=== PATIENT | female | born 1990 | race Caucasian/White ===

== ENCOUNTER 2016-04-03 12:41 | Emergency (ER) | payer BC, OTHER ==
[~2016-04-03] VITALS: Ht 165.1 cm; Wt 59.2 kg
[2016-04-03 12:55] VITALS: Ht 165.1 cm; Wt 59.2 kg
[2016-04-03] MEDS ORDERED: RABIES IMMUNE GLOBULIN (HUMAN) 150 INTER.UNIT/ML 2 ML VIAL IM. ONE (13:15)
[2016-04-03] MEDS ORDERED: RABIES VACCINE (IMOVAX) HUMAN DIPL CELL 2.5 INTER.UNIT/ML SYR IM. ONE (13:15)
[2016-04-03 15:58] VITALS: BP 101/58; PULSE 78; TEMP 36.7; O2SAT 97
--- NOTE | 2016-04-03 16:43 | EMERGENCY ROOM VISIT NOTE ---
History First contact with patient: 12:53 Chief Complaint: RABIES VACCINE Stated Complaint: NEEDS RABIES VACCINE History of Present Illness The patient is a 25 year old female who presents to the Emergency Room to undergo the rabies postexposure prophylaxis series. The family dog got into a fight yesterday morning with a raccoon. The raccoon has since been tested positive for rabies. The patient did have a direct exposure to the dog, and was sent here for further management. The patient is certain that the dog has not bitten any family members, and the patient has no current open wounds. Review of Systems 10 system review was performed and was negative except for pertinent positives and negatives as indicated in history of present illness Past Medical/Surgical History Medical Problems: (1) No Known Active Medical Problems Family History Patient reports no known family medical history. Social History Smoking Status: Never Smoker Marital Status: single Occupation Status: employed Current/Historical Medications No Active Prescriptions or Reported Meds Allergies Coded Allergies: No Known Allergies (Unverified , 04/03/16) Physical Exam Vital Signs Date Time Temp Pulse Resp B/P Pulse Ox O2 Delivery O2 Flow Rate FiO2 04/03/16 15:58 36.7 78 20 101/58 97 04/03/16 15:57 78 20 101/58 97 Room Air 04/03/16 12:55 36.7 78 20 102/61 97 Room Air Pain Rating (0-10): 0 Physical Exam CONSTITUTIONAL: Healthy and well nourished. Alert and oriented X 3 with positive affect. HEENT: Normocephalic, atraumatic. Pupils equal, round and reactive. NECK: Full active range of motion without discomfort. RESPIRATORY: Clear to auscultation bilaterally with no wheezing, crackles, rhonchi or stridor. CARDIOVASCULAR: Regular rate and rhythm with no murmurs, rubs or gallops. GASTROINTESTINAL: Bowel sounds present in all quadrants. MUSCULOSKELETAL: Full range of motion of all joints without discomfort. INTEGUMENTARY: No rash or other significant dermatologic conditions noted. NEUROLOGIC: No focal neurologic deficits noted. Medical Decision & Procedures Medications Administered Medications (Trade) Dose Ordered Sig/Jose Alfredo Route Start Time Stop Time Status Last Admin Dose Admin Rabies Vaccine Human Diploid Cell (Imovax Rabies) 2.5 interunit ONCE ONCE IM. 04/03/16 13:15 04/03/16 13:16 DC 04/03/16 13:41 2.5 INTERUNIT Rabies Immune Globulin (Imogam Rabies Inj) 1,184 interunit ONCE ONCE IM. 04/03/16 13:15 04/03/16 13:16 DC 04/03/16 14:40 1,184 INTERUNIT ED Course Patient history and physical exam were performed. Nurse's notes were reviewed. The patient was administered human rabies immunoglobulin 20 interunits per kilogram, along with Imovax without any adverse reaction. The patient will return on days 3, 7 and 14. The patient was happy with plan of care, and voiced understanding of all discharge instructions. Medical Decision Impression Primary Impression: Rabies, need for prophylactic vaccination against Departure Information Dispostion Home / Self-Care Condition GOOD Prescriptions No Active Prescriptions or Reported Meds Forms HOME CARE DOCUMENTATION FORM, IMPORTANT VISIT INFORMATION Patient Instructions [facility] Additional Instructions Return on the following days for subsequent injections: Day 3 (04/06) Day 7 (04/10) Day 14 (04/17)
== END 2016-04-03 15:59 | disposition home or self-care (01) ==
LOC: C.EDB 12:42 → C.EDD 15:59
DX: Z23 Encounter for immunization (principal); Z20.3 Contact with and (suspected) exposure to rabies; W55.59XA Other contact with raccoon, initial encounter; Y93.89 Activity, other specified; Y92.89 Other specified places as the place of occurrence of the external cause; Y99.8 Other external cause status

== ENCOUNTER 2016-04-05 15:03 | Emergency (ER) | payer BC ==
[~2016-04-05] VITALS: Ht 165.1 cm; Wt 60.8 kg
[2016-04-05 15:28] VITALS: BP 129/58; PULSE 68; TEMP 36.8; O2SAT 100; Ht 165.1 cm; Wt 60.8 kg
--- NOTE | 2016-04-05 16:21 | EMERGENCY ROOM VISIT NOTE ---
ED Visit Note First contact with patient: 15:35 CHIEF COMPLAINT: Rabies prophylaxis HISTORY OF PRESENT ILLNESS: This 25-year-old female patient presents to the emergency department ambulatory for their second rabies shot. The patient has not had any complications from the previous injections. They deny any other complaints. REVIEW OF SYSTEMS: A 6 system review of systems was completed with positives and pertinent negatives listed in the HPI. PMH: Unchanged from previous visit. PHYSICAL EXAM: Vital Signs: Reviewed Nurse's notes, vital signs stable. GENERAL : This is a 25-year-old female, in no acute distress, well-developed, well- nourished. HEAD: Atraumatic, without temporal or scalp tenderness. EYES: PERRLA, EOMI, no discharge or injection. SKIN: Normal. NEUROLOGICAL: Alert and cooperative. Sensory and motor functions grossly intact. EMERGENCY DEPARTMENT COURSE: I examined the patient. The patient presents to the emergency department 24 hours early for the day 3 injection. The injection should be given tomorrow. I did discuss this with the hospital pharmacist and she also agrees that it should not be given today and she should stick to the appropriate schedule. When I discussed this with the patient and the family they state that they were told bye this ED that the entire family who was possibly exposed could come back on the same day despite starting the vaccination series on different days. I do not feel that this is ideal. I discussed this with the nurse sulfuric acid plant supervisor and she states that she will let billing know that they should not be charged for this visit. They should return tomorrow for the next vaccination on the appropriate schedule. The patient was discharged home in stable condition. Additionally, I did attempt to contact the Department of Health that they are closed today for [facility] DIAGNOSIS: Rabies prophylaxis DISCHARGE INSTRUCTIONS: Continue vaccination schedule as directed. Return for any complications. Current/Historical Medications No Active Prescriptions or Reported Meds Allergies Coded Allergies: No Known Allergies (Unverified , 04/05/16) Vital Signs Date Time Temp Pulse Resp B/P Pulse Ox O2 Delivery O2 Flow Rate FiO2 04/05/16 15:28 36.8 68 16 129/58 100 Room Air Departure Information Impression Primary Impression: Rabies, need for prophylactic vaccination against Dispostion Home / Self-Care Condition GOOD Prescriptions No Active Prescriptions or Reported Meds Referrals Angel White M.D. (PCP) Patient Instructions [facility]
== END 2016-04-05 16:21 | disposition home or self-care (01) ==
LOC: C.EDB 15:04 → C.EDD 16:21
DX: Z29.14 Encounter for prophylactic rabies immune globulin (principal); Z20.3 Contact with and (suspected) exposure to rabies

== ENCOUNTER 2016-04-06 17:02 | Emergency (ER) | payer BC ==
[~2016-04-06] VITALS: Ht 165.1 cm; Wt 60.5 kg
[2016-04-06 17:11] VITALS: BP 99/60; PULSE 95; TEMP 36.8; O2SAT 98; Ht 165.1 cm; Wt 60.5 kg
[2016-04-06] MEDS ORDERED: RABIES VACCINE (IMOVAX) HUMAN DIPL CELL 2.5 INTER.UNIT/ML SYR IM. ONE (17:30)
--- NOTE | 2016-04-06 17:34 | EMERGENCY ROOM VISIT NOTE ---
ED Visit Note First contact with patient: 17:16 CHIEF COMPLAINT: Need second rabies vaccine HISTORY OF PRESENT ILLNESS: This 25-year-old female presents the ER for her second rabies vaccine. The patient was seen here initially 3 days ago when she came in contact with a dog that was bitten by a rabid raccoon. The patient did not have any problems with the first vaccine. REVIEW OF SYSTEMS:6 system review was performed and was negative unless stated otherwise in history of present illness. PMH: The patient is healthy; there is no significant medical or surgical history. SOCIAL HISTORY: Patient denies any tobacco or alcohol use PHYSICAL EXAM: Vital Signs: Were reviewed Reviewed Nurse's notes. GEN.: 25-year -old white female appears in no acute distress. MENTAL STATUS: Alert and oriented 3. EMERGENCY DEPARTMENT COURSE: The patient was evaluated. The patient was given Imovax IM. The patient was observed for 30 minutes and did not have any reaction. The patient was discharged home in stable condition. DIAGNOSIS: Rabies prophylaxis DISCHARGE INSTRUCTIONS: Continue following your rabies vaccine schedule. Return to the ER on day 7 and day 14 for the remainder of the vaccine series. Current/Historical Medications No Active Prescriptions or Reported Meds Allergies Coded Allergies: No Known Allergies (Unverified , 04/05/16) Vital Signs Date Time Temp Pulse Resp B/P Pulse Ox O2 Delivery O2 Flow Rate FiO2 04/06/16 17:11 36.8 95 20 99/60 98 Room Air Departure Information Prescriptions No Active Prescriptions or Reported Meds Referrals Pilo Solano III, M.D. (PCP) Patient Instructions My [facility]
== END 2016-04-06 18:06 | disposition home or self-care (01) ==
LOC: C.EDB 17:06 → C.EDD 18:06
DX: Z23 Encounter for immunization (principal); Z20.3 Contact with and (suspected) exposure to rabies

== ENCOUNTER 2016-04-10 12:26 | Emergency (ER) | payer BC ==
[~2016-04-10] VITALS: Ht 165.1 cm; Wt 60.1 kg
[2016-04-10 12:28] VITALS: TEMP 36.8; Ht 165.1 cm; Wt 60.1 kg
[2016-04-10] MEDS ORDERED: RABIES VACCINE (IMOVAX) HUMAN DIPL CELL 2.5 INTER.UNIT/ML SYR IM. ONE (12:30)
--- NOTE | 2016-04-10 12:36 | EMERGENCY ROOM VISIT NOTE ---
ED Visit Note First contact with patient: 12:29 CHIEF COMPLAINT: Need third rabies vaccine HISTORY OF PRESENT ILLNESS: This 25-year-old female presents the ER for her second rabies vaccine. The patient was seen here initially 3 days ago when she came in contact with a dog that was bitten by a rabid raccoon. The patient did not have any problems with the first vaccine. REVIEW OF SYSTEMS:6 system review was performed and was negative unless stated otherwise in history of present illness. PMH: The patient is healthy; there is no significant medical or surgical history. SOCIAL HISTORY: Patient denies any tobacco or alcohol use PHYSICAL EXAM: Vital Signs: Were reviewed Reviewed Nurse's notes. GEN.: 25-year -old white female appears in no acute distress. MENTAL STATUS: Alert and oriented 3. EMERGENCY DEPARTMENT COURSE: The patient was evaluated. The patient was given Imovax IM. The patient was observed for 30 minutes and did not have any reaction. The patient was discharged home in stable condition. DIAGNOSIS: Rabies prophylaxis DISCHARGE INSTRUCTIONS: Continue following your rabies vaccine schedule. Return to the ER in 7 days for your final rabies vaccine Current/Historical Medications No Active Prescriptions or Reported Meds Allergies Coded Allergies: No Known Allergies (Unverified , 04/10/16) Vital Signs Date Time Temp Pulse Resp B/P Pulse Ox O2 Delivery O2 Flow Rate FiO2 04/10/16 12:28 36.8 67 18 116/71 97 Room Air Departure Information Prescriptions No Active Prescriptions or Reported Meds Referrals Angel White M.D. (PCP) Patient Instructions [facility]
[2016-04-10 12:52] VITALS: BP 113/68; PULSE 68; O2SAT 97
== END 2016-04-10 12:53 | disposition home or self-care (01) ==
LOC: C.EDB 12:27 → C.EDD 12:53
DX: Z23 Encounter for immunization (principal); Z20.3 Contact with and (suspected) exposure to rabies

== ENCOUNTER 2016-04-17 14:15 | Emergency (ER) | payer BC ==
[~2016-04-17] VITALS: Ht 165.1 cm; Wt 61.0 kg
[2016-04-17 14:19] VITALS: BP 114/80; PULSE 70; TEMP 36.5; O2SAT 100; Ht 165.1 cm; Wt 61.0 kg
[2016-04-17] MEDS ORDERED: RABIES VACCINE (IMOVAX) HUMAN DIPL CELL 2.5 INTER.UNIT/ML SYR IM. ONE (14:45)
--- NOTE | 2016-04-19 11:25 | EMERGENCY ROOM VISIT NOTE ---
ED Visit Note First contact with patient: 14:26 Chief Complaint: Rabies immunization. History of Present Illness: Ms. Henriquez is a 25-year-old white female who ambulates into the ED requesting the fourth of her rabies immunization series. Patient reports her family dog was exposed to a raccoon that tested positive for rabies and it was recommended that she prophylactically be treated for the rabies immunization. Patient does report she has had no previous reactions to his immunizations and she is feeling well today. Review of Systems: As noted above in history of present illness. Past Medical History: As previously noted Physical Examination: Vital Signs: Date Time Temp Pulse Resp B/P Pulse Ox O2 Delivery O2 Flow Rate FiO2 04/17/16 14:19 36.5 70 16 114/80 100 GENERAL: 25-year-old female in no acute distress, nontoxic-appearing, afebrile and hemodynamically stable. NEUROLOGICAL: Awake, alert and oriented to person, place and time. Answering questions appropriately and following commands. ED Course: Patient is assessed as noted above. Patient was given 2.5 interunit of rabies vaccination IM. Patient was held and observed and had no reactions to the medication injection. Patient father were educated about tonight's visit and instructed on his treatment plan. Clinical Impression: Rabies immunizations. Disposition: Patient discharged home in stable condition; prior to departure she was reassessed and subjectively reported that she was pain and symptom-free. Plan: Patient was encouraged to use ibuprofen or acetaminophen as needed for mild symptoms of body aches and/or mild fevers. Patient was encouraged to return to the ED for any fevers above 101F, uncontrolled pain, uncontrolled vomiting or any new/concerning symptoms.
== END 2016-04-17 15:00 | disposition home or self-care (01) ==
LOC: C.EDB 14:15 → C.EDD 15:00
DX: Z23 Encounter for immunization (principal); Z20.3 Contact with and (suspected) exposure to rabies

== ENCOUNTER 2023-04-14 07:28 | Inpatient (IN) ==
--- OUTSIDE RECORDS SUMMARY | 2023-04-14 07:34 | External Medical Summary | Summary of Care ---
Author Name Unknown Organization [facility] Address [address] [place] [address] Phone [phone] Care Team Providers Care Commercial Insurance Underwriter Name Role Phone Anirudh Cuello MD Primary Care Provider [phone] Reason for Visit * Reason Comments Return Visit Encounter Details Date Type Department Care Team (Latest Contact Info) Description 03/18/2023 7:45 AM EST Office Visit Gynecology/Obstetri Ander Cordon [address] [facility] [place] [address] Aurea De La Cruz PA-C [address] [place] [id number] Normal in third trimester*; Family history of congenital anomaly; History of loop electrosurgical excision procedure (LEEP) of cervix affecting in third trimester Allergies Active Allergy Reactions Criticality Noted Date Comments Docosanol Edema face/lips/tongue High 06/13/2012 documented as of this encounter (statuses as of 03/18/2023) Medications Medication Sig Dispensed Refills Start Date End Date Status 19 29-1 MG Oral Tablet Chewable Take by mouth. 0 Active Breast Pump Dispense double electric breast pump. 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, + HPV - 09/15/16 LEEP -04/01/17 - ASC - HPV -02/13/19 - Normal, - HPV - Getting in 2021 - 5 siblings: One of twins, also has twin brothers Herpes labialis 06/17/2016 ADVANCE DIRECTIVE INFORMATION 12/14/2005 Overview: Not applicable Estimated Date of Delivery Comme nts Yes 04/08/2023 Based on last me nstrual period of 07/02/2022 documented as of this encounter (statuses as of 03/18/2023) Resolved Problems Problem Noted Date Diagnosed Date Resolved Date Obesity in , antepartum 09/24/2022 10/25/2022 Overview: Class 1 Benign neoplasm of skin 12/23/2009 090 09/2016 Headache 10/02/2002 04/11/2008 Overview: ICD-10 update of inactive term ADJ DISORDER W/DEPRES MOOD 10/02/2002 0 04/11/2008 FOLLICULITIS 09/08/1998 11/25/2016 Overview: Recurrent, on Buttocks documented as of this encounter (statuses as of 03/18/2023) Immunizations Name Administration Dates Next Due DTWP - Dipth/Tet/Whole Cell Pertussis 01/21/1992 ,1991,1991 DTaP Dipth/Tet/Acell Pertussis (Infanrix), Peds 04/04/1996 HEP A - Hepatitis A (Adult > 18 yrs) 02/26/2013 HPV Vaccine, 4-Valent 04/11/2008,05/05/2007,02/18 Haemophilius B (HIB), unspecified 01/21/1992,,1991 Hep A - Hepatitis A (ped/ado le, 1-18 Yrs) 05/07/2009 Hepatitis B Vaccine 04/23/1992,1991,1991 MMR - Measles/Mumps/Rubella Vaccine 10/22/1996,0 10/15/1992 Meningococcal Conjugate Vacc ine (Menactra/Menveo) 05/26/2006 OPV - Polio Virus Vaccine (Oral) 997,01/07/1993,1991,09/11 PPD 01/19/2022, 0,04/06/2018,11/25,01/22/2015,02/26/2013 Seasonal Influenza, PF, 6 M & above, IM , (FluLaval or Fluzone) 02/11/2020,04/06/2018 Seasonal Influenza, Quadriva lent, No Preserve, IM 11/25/2016,01/22/2015 Seasonal Influenza, Split, I IV3, With Preserve, Inj 02/07/2007,01/28/2005,02/20/2003 TB Denise Test 04/23/1992 TDAP (age 10 and older)(Boostrix) 01/28/2023,,04/27/2005 Varicella Vaccine (Chicken Pox) 03/01/2007,12/14 documented as of this encounter Social History Tobacco Use Types Packs/Day Years Used Date Smoking Tobacco: Never Smokeless Tobacco: Never Alcohol Use Standard Drinks/Week Comments No 0 (1 standard drink = 0.6 oz pur e alcohol) rarely PHQ-2 Answer Date Recorded PHQ-2 Score 0 02/11/2020 Hunger Vital Sign Answer Date Recorded Within the past 12 months, y ou worried that your food would run out before you got the money to buy more. Never true 09/07/19 23 Within the past 12 months, t he food you bought just didn't last and you didn't have money to get more. Never true 09/06/2022 [place] Depression Scale Answer Date Recorded [place] Depression Scale Total 0 02/17/2023 The thought of harming myself has occurred to me . Never 02/17/2023 Estimated Date of Delivery Comme nts Yes 04/08/2023 Based on last me nstrual period of 07/02/2022 Sex and Gender Information Value Date Recorded Sex Assigned at Female 09/06/2022 9:13 PM EDT Gender Identity Female 09/06/2022 9:13 PM EDT Sexual Orientation Straight 09/06/2022 9: 13 PM EDT Job Start Date Occupation Industry Not on file Not on file Not on file documented as of this encounter Last Filed Vital Signs Vital Sign Reading Time Taken Comments Blood Pressure 118/70 03/18/2023 7:38 AM EST Pulse - - Temperature - - Respiratory Rate - - Oxygen Saturation - - Inhaled Oxygen Concentration - - Weight 104.3 kg (230 lb) 03/18/2023 7:38 AM EST Height - - Body Mass Index 38.27 03/02/2023 7:55 AM EST documented in this encounter Progress Notes * Aurea De La Cruz PA-C - 03/18/2023 8:52 AM EST 37w0d Denies bleeding, leaking, regular contractions. Pos fm. Having some itching on stretch tyler, no rash. No itching of palms or soles. Reviewed emollients creams such as Eucerin and Vaseline. Reviewed OTC Benadryl cream to help with itch. Due for GBS, done. RTC in 1 week Aurea De La Cruz PA-C * Marimar Pelaez LPN - 03/18/2023 7:37 AM EST 37w0d Denies vaginal bleeding/rom + movement Stretch tyler causing itching documented in this encounter Plan of Treatment Pending Results Name Type Priority Associated Diagnoses Date /Time GROUP B STREP CULTURE/PCR Lab Routine Normal in third trimester 03/18/2023 9:05 AM EST Scheduled Orders Name Type Priority Associated Diagnoses Orde r Schedule GROUP B STREP CULTURE/PCR Lab Routine Normal in third trimester Expected: 03/18/2023, Expires: 03/18/2024 Health Maintenance Due Date Last Done Comments COVID-19 Vaccine (#1) 01/05/1992 Depression Screening 02/10/2021 02/11/2020 Influenza Vaccine (FLU shot) (#1) 2022 02/11/2020, 04/06/2018, 11/25/2016, Additional history exists Pap Smear 04/16/2025 04/16/2022, 1206/2018, 04/01/2017, Additional history exists Cervical Cancer Screening 04/16/2027 HPV/Co-Test 04/16/2027 04/16/2022 DTaP,Tdap,and Td Vaccines (8 - Td or Tdap) 01/28/2033 01/28/2023, 06/17/2016, 04/27/2005, Additional history exists Hepatitis B Completed 04/23/1992, 05/1991, 1991 MENINGOCOCCAL (MENACTRA/MENVEO) Aged Out 05/26/2006 No longer eligible based on patient's age to complete this topic GARDASIL-HPV IMMUNIZATION SERIES Completed 04/11/2008, 05/05/2007, 03/01/2007 Pneumococcal Vaccine: Pediatrics (0 to 5 Years) and At-Risk Patients (6 to 64 Years) Aged Out No longer eligible based on patient's age to complete this topic documented as of this encounter Medical Devices Not on filedocumented as of this encounter Visit Diagnoses Diagnosis Normal in third trimester- Primary Family history of congenital anomaly Family history of congenital anomalies History of loop electrosurgical excision procedure (LEEP) of cervix affecting in third trimester documented in this encounter Care Teams Commercial Insurance Underwriter Relationship Specialty Start Date End Date Anirudh Cuello MD [address] [facility] [place] [phone] PCP - General Family Medicine 02/11/20 documented as of this encounter
--- OUTSIDE RECORDS SUMMARY | 2023-04-14 07:34 | External Medical Summary | Summary of Care ---
Author Name Unknown Organization [facility] Address [address] [place] [address] Phone [phone] Care Team Providers Care Retail Mortgage Banker Name Role Phone Anirudh Cuello MD Primary Care Provider [phone] Reason for Visit * Reason Onset Date Comments Advice 03/22/[address] Velasco Encounter Details Date Type Department Care Team (Late st Contact Info) Description 03/22/2023 Telephone Gynecology/Obstetrics [facility] [address] [facility] [place] [address] Srinivasa Velasco MD [address] [facility] [address] Advice (Review with Dr. Velasco) Allergies Active Allergy Reactions Criticality Noted Date Comments Docosanol Edema face/lips/tongue High 06/13/2012 documented as of this encounter (statuses as of 03/22/2023) Medications Medication Sig Dispensed Refills Start Date End Date Status 19 29-1 MG Oral Tablet Chewable Take by mouth. 0 Active Breast Pump Dispense double electric breast pump. Dx Z39.1 1 Each 0 12/24/2022 Active documented as of this encounter (statuses as of 03/22/2023) Active Problems Problem Noted Date Diagnosed Date [...] as of this encounter (statuses as of 03/22/2023) Resolved Problems Problem Noted Date Diagnosed Date Resolved Date Obesity in , antepartum 09/24/2022 10/25/2022 Overview: Class 1 Benign neoplasm of skin 12/23/2009 090 09/2016 Headache 10/02/2002 04/11/2008 Overview: ICD-10 update of inactive term ADJ DISORDER W/DEPRES MOOD 10/02/2002 0 04/11/2008 FOLLICULITIS 09/08/1998 11/25/2016 Overview: Recurrent, on Buttocks documented as of this encounter (statuses as of 03/22/2023) Immunizations Name Administration Dates Next Due DTWP [...] money to get more. Never true 09/06/2022 [place] Depression Scale Answer Date Recorded [place] Depression Scale Total 0 02/17/2023 The thought [...] on file documented as of this encounter Miscellaneous Notes * Telephone Encounter - Loreto Espinal LPN - 03/22/2023 1:59 PM EST left message for patient to call office * Telephone Encounter - Delisa Choudhury RN - 03/22/2023 1:47 PM EST Patient reviewed with Dr. Velasco. He advised patient to monitor for now. Call office with any new/additional labor symptoms or increase in bleeding. * Telephone Encounter - Loreto Espinal LPN - 03/22/2023 12:27 PM EST Patient currently 37w4d calling with bleeding. Reports it started in the last 15 minutes. Just withwiping, pinkish red in color. No recent vaginal exam or intercourse Is there any pain associated with the bleeding? no Are you having any contractions? no Does the pain come or go or is it constant? Have you had a recent US ? No 11/26/22 Placenta placement? Fundal documented in this encounter Plan of Treatment Upcoming Encounters Date Type Department Care Team (Late st Contact Info) Description 03/24/2023 3:15 PM EST Office Visit Gynecology/Obstetrics Ander Cordon [address] [place] [address] [place], JARRET Mancuso [address] [place] [address] Health Maintenance Due Date Last Done Comments [...] Not on filedocumented as of this encounter Care Teams Retail Mortgage Banker Relationship Specialty Start Date End Date Anirudh Cuello MD [address] [place] [address] PCP - General Family Medicine 02/11/20 documented as of this encounter
--- OUTSIDE RECORDS SUMMARY | 2023-04-14 07:34 | External Medical Summary | Summary of Care ---
Author Name Unknown Organization [facility] Address [address] [place] [address] Phone [phone] Care Team Providers Care Bill Collector Name Role Phone Anirudh Cuello MD Primary Care Provider +1 [phone] Reason for Visit * Reason Comments Return Visit Encounter Details Date Type Department Care Team (Latest Contact Info) Description 04/13/2023 10:45 AM EST [facility] [address] [facility] [place] [address] Hanh Moore CRNP [address] [facility] [place] [address] Post-term , 40-42 weeks of gestation*; Normal in third trimester; Family history of congenital anomaly; History of loop electrosurgical excision procedure (LEEP) of cervix affecting , antepartum Allergies Active Allergy Reactions Criticality Noted Date Comments Docosanol Edema face/lips/tongue High 06/13/2012 documented as of this encounter (statuses as of 04/13/2023) Medications Medication Sig Dispensed Refills Start Date End Date Status 19 29-1 MG Oral Tablet Chewable Take by mouth. 0 Active Breast Pump Dispense double electric breast pump. Dx Z39.1 1 Each 0 12/24/2022 Active documented as of this encounter (statuses as of 04/13/2023) Active Problems Problem Noted Date Diagnosed Date [...] as of this encounter (statuses as of 04/13/2023) Resolved Problems Problem Noted Date Diagnosed Date Resolved Date Obesity in , antepartum 09/24/2022 10/25/2022 Overview: Class 1 Benign neoplasm of skin 12/23/2009 090 09/2016 Headache 10/02/2002 04/11/2008 Overview: ICD-10 update of inactive term ADJ DISORDER W/DEPRES MOOD 10/02/2002 0 04/11/2008 FOLLICULITIS 09/08/1998 11/25/2016 Overview: Recurrent, on Buttocks documented as of this encounter (statuses as of 04/13/2023) Immunizations Name Administration Dates Next Due HEP A - Hepatitis A (Adult > 18 yrs) 02/26/2013 HPV Vaccine, 4-Valent 04/11/2008,05/05/2007,02/18 Hep A - Hepatitis A (ped/ado le, 1-18 Yrs) 05/07/2009 Meningococcal Conjugate Vacc ine (Menactra/Menveo) 05/26/2006 PPD 01/19/2022, 0,04/06/2018,11/25,01/22/2015,02/26/2013 Seasonal Influenza, PF, 6 M & above, IM , (FluLaval or Fluzone) 02/11/2020,04/06/2018 Seasonal Influenza, Quadriva lent, No Preserve, IM 11/25/2016,01/22/2015 Seasonal Influenza, Split, I IV3, With Preserve, Inj 02/07/2007 TDAP (age 10 and older)(Boostrix) 01/28/2023,,04/27/2005 Varicella Vaccine (Chicken Pox) 03/01/2007 documented as of this encounter Social History [...] money to get more. Never true 09/06/2022 [place] Depression Scale Answer Date Recorded [place] Depression Scale Total 0 02/17/2023 The thought [...] Sign Reading Time Taken Comments Blood Pressure 124/80 04/13/2023 10:43 AM EST Pulse - - Temperature - - Respiratory Rate - - Oxygen Saturation - - Inhaled Oxygen Concentration - - Weight 108.4 kg (239 lb) 04/13/2023 10:43 AM EST Height 165.1 cm (5' 5") 04/13/2023 10:43 AM EST Body Mass Index 39.77 04/13/2023 10:43 AM EST documented in this encounter Progress Notes * Hanh Moore CRNP - 04/13/2023 10:57 AM EST 40w5d No concerns. Has had one contraction total. No bleeding or LOF. Baby is active. IOL tomorrow morning. Asking for cervical check- unable to reach cervix d/t head low in pelvis. 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 Name of irrigation worker: JARRET Clark * Danielle Goins LPN - 04/13/2023 10:43 AM EST 40w5d Would like cervix checked documented in this encounter Plan of Treatment Health Maintenance Due Date Last Done Comments COVID-19 Vaccine (#1) 01/05/1992 Depression Screening 02/10/2021 02/11/2020 Influenza Vaccine (FLU shot) (#1) 2022 02/11/2020, 04/06/2018, 11/25/2016, Additional history exists Pap Smear 04/16/2025 04/16/2022, 06/2018, 04/01/2017, Additional history exists Cervical Cancer Screening [...] as of this encounter Visit Diagnoses Diagnosis Post-term , 40-42 weeks of gestation- Primary Post term , unspecified episode of care Normal in third trimester Family history of congenital anomaly Family history of congenital anomalies History of loop electrosurgical excision procedure (LEEP) of cervix affecting , antepartum documented in this encounter Care Teams Bill Collector Relationship Specialty Start Date End Date Anirudh Cuello MD [address] [facility] [place] [address] PCP - General Family Medicine 02/11/20 documented as of this encounter
--- OUTSIDE RECORDS SUMMARY | 2023-04-14 07:34 | External Medical Summary | Summary of Care ---
Author Name Unknown Organization [facility] Address [address] [place] [address] Phone [phone] Care Team Providers Care Operations Architect Name Role Phone Anirudh Cuello MD Primary Care Provider [phone] [phone] Reason for Visit * Reason Onset Date Comments Advice 03/22/[address] Velasco Encounter Details Date Type Department Care Team (Late st Contact Info) Description 03/22/2023 Telephone Gynecology/Obstetrics [facility] [address] [facility] [place] [address] Srinivasa Velasco MD [address] [address] Advice (Review with Dr. Velasco) Allergies Active [...] money to get more. Never true 09/06/2022 [place] Depression Scale Answer Date Recorded [place] Depression Scale Total 0 02/17/2023 The thought [...] encounter Miscellaneous Notes * Telephone Encounter - Delisa Choudhury RN - 03/22/2023 2:06 PM EST Patient called and made aware of below. Patient verbalized understanding. * Telephone Encounter - Loreto [place] LPN [...] 03/24/2023 3:15 PM EST Office Visit Gynecology/Obstetrics [facility] [address] [place] [address] BackerEliasCarolJARRET Beavres [address] [place] [address] Health Maintenance Due Date Last Done Comments [...] filedocumented as of this encounter Care Teams Operations Architect Relationship Specialty Start Date End Date Anirudh Cuello MD [address] [place] [address] PCP - General Family Medicine 02/11/20 documented as of this encounter
--- OUTSIDE RECORDS SUMMARY | 2023-04-14 07:34 | External Medical Summary | Summary of Care ---
Author Name Unknown Organization [facility] Address [address] [place] [address] Phone [phone] Care Team Providers Care Construction Project Assistant Name Role Phone Anirudh Cuello MD Primary Care Provider +1 [phone] Reason for Visit * Reason Onset Date Comments Advice 03/22/[address] Velasco Encounter Details Date Type Department Care Team (Late st Contact Info) Description 03/22/2023 Telephone Gynecology/Obstetrics [facility] [address] [facility] [place] [address] Srinivasa Velasco MD [address] [place] [address] Advice (Review with Dr. Velasco) Allergies Active [...] money to get more. Never true 09/06/2022 [place] Depression Scale Answer Date Recorded [place] Depression Scale Total 0 02/17/2023 The thought [...] Office Visit Gynecology/Obstetrics Ander Cordon [address] [place] [address] Backer, JARRET Mancuso [address] [place] [address] Health Maintenance Due Date Last Done Comments [...] filedocumented as of this encounter Care Teams Construction Project Assistant Relationship Specialty Start Date End Date Anirudh Cuello MD [address] [place] [address] PCP - General Family Medicine 02/11/20 documented as of this encounter
--- OUTSIDE RECORDS SUMMARY | 2023-04-14 07:34 | External Medical Summary | Summary of Care ---
Author Name Unknown Organization [facility] Address [address] [place] [address] Phone [phone] Care Team Providers Care Duty Officer Name Role Phone Anirudh Cuello MD Primary Care Provider +1 [phone] Reason for Visit * Reason Comments Return Visit Encounter Details Date Type Department Care Team (Late st Contact Info) Description 03/24/2023 3:15 PM EST Office Visit Gynecology/Obstetri [facility] [address] [facility] [place] [address] Carol Jacob CRNP [address] [facility] [place] [address] Normal in third trimester*; Family history of congenital anomaly; History of loop electrosurgical excision procedure (LEEP) of cervix affecting , antepartum; Sensation of pressure in bladder area Allergies Active Allergy Reactions Criticality Noted Date Comments Docosanol Edema face/lips/tongue High 06/13/2012 documented as of this encounter (statuses as of 03/24/2023) Medications Medication Sig Dispensed Refills Start Date End Date Status 19 29-1 MG Oral Tablet Chewable Take by mouth. 0 Active Breast Pump Dispense double electric breast pump. Dx Z39.1 1 Each 0 12/24/2022 Active documented as of this encounter (statuses as of 03/24/2023) Active Problems Problem Noted Date Diagnosed Date [...] as of this encounter (statuses as of 03/24/2023) Resolved Problems Problem Noted Date Diagnosed Date Resolved Date Obesity in , antepartum 09/24/2022 10/25/2022 Overview: Class 1 Benign neoplasm of skin 12/23/[address] 09/2016 Headache 10/02/2002 04/11/2008 Overview: ICD-10 update of inactive term ADJ DISORDER W/DEPRES MOOD 10/02/2002 0 04/11/2008 FOLLICULITIS 09/08/1998 11/25/2016 Overview: Recurrent, on Buttocks documented as of this encounter (statuses as of 03/24/2023) Immunizations Name Administration Dates Next Due HEP [...] money to get more. Never true 09/06/2022 [place] Depression Scale Answer Date Recorded [place] Depression Scale Total 0 02/17/2023 The thought [...] Sign Reading Time Taken Comments Blood Pressure 124/78 03/24/2023 3:11 PM EST Pulse - - Temperature - - Respiratory Rate - - Oxygen Saturation - - Inhaled Oxygen Concentration - - Weight 105.7 kg (233 lb) 03/24/2023 3:11 PM EST Height - - Body Mass Index 38.77 03/02/2023 7:55 AM EST documented in this encounter Progress Notes * Marimar Pelaez LPN - 03/24/2023 3:08 PM EST 37w6d Tuesday/Tuesday bleeding noticed with wiping- nothing since + movement Yesterday and today noticed pressure with urination * Carol Jacob CRNP - 03/24/2023 3:08 PM EST 37w6d Baby is moving well. Noticed some blood with wiping on Tuesday and Tuesday - none since. Increased dampness over the last 2 days, not consistent. Unsure if urine. Noting more pressure w/urination as well. No frequency/urgency. On exam: perineum dry, small white/yellow physiologic vaginal discharge. Neg pooling, neg Nitrazine. Reviewed labor signs/FKC and when to call. Urine culture sent - +leuks on dip. 1 week return JARRET Monsalve documented in this encounter Plan of Treatment Upcoming Encounters Date Type Department Care Team (Late st Contact Info) Description 03/30/2023 8:30 AM EST Office Visit Gynecology/Obstetrics [facility] [address] [place] [address] Srinivasa Velasco MD [address] [place] [address] 04/05/2023 8:00 AM EST Office Visit Gynecology/Obstetrics [facility] [address] [place] [address] Hanh Moore CRNP [address] [place] [address] Pending Results Name Type Priority Associated Diagnoses Date /Time CULTURE, URINE, QUANTITATIVE Lab Routine Sensation of pressure in bladder area 03/24/2023 3:25 PM EST Health Maintenance Due Date Last Done Comments [...] Not on filedocumented as of this encounter Procedures Procedure Name Priority Date/Time Associated Diagnosis Comments URINALYSIS, POINT OF CARE (ENTER/EDIT) Routine 03/24/2023 Sensation of pressure in bladder area documented in this encounter Results * URINALYSIS, POINT OF CARE (ENTER/EDIT) (03/24/2023) Color, Urine Yellow Yellow or Light Yellow Clarity, Urine Clear Clear Glucose, Urine Negative Negative mg/dL Bilirubin, Urine Negative Negative Ketone, Urine Negative Negative mg/dL Specific Thompson, Urine 1.020 1.003 - 1.030 Blood, Urine Small Negative pH, Urine 6.5 5.0 - 7.5 units Protein, Urine Negative Negative mg/dL Urobilinogen, Urine 0.2 0.2 - 1.0 mg/dL Nitrite, Urine Negative Negative Esterase, Urine Small Negative Urine 03/24/2023 Carol Keith Backer JARRET LAB POINT O F CARE TEST ENTER/EDIT ORDERABLES documented in this encounter Visit Diagnoses Diagnosis Normal in third trimester- Primary Family history of congenital anomaly Family history of congenital anomalies History of loop electrosurgical excision procedure (LEEP) of cervix affecting , antepartum Sensation of pressure in bladder area Other specified disorders of bladder documented in this encounter Care Teams Duty Officer Relationship Specialty Start Date End Date Anirudh Cuello MD [address] [place] [address] PCP - General Family Medicine 02/11/20 documented as of this encounter
--- OUTSIDE RECORDS SUMMARY | 2023-04-14 07:34 | External Medical Summary | Summary of Care ---
Author Name Unknown Organization [facility] Address [address] [place] [address] Phone [phone] Care Team Providers Care Check Inspector Name Role Phone Anirudh Cuello MD Primary Care Provider [phone] [phone] Reason for Visit * Reason Comments Return Visit Encounter Details Date Type Department Care Team (Latest Contact Info) Description 04/05/2023 8:00 AM EST [facility] [address] [facility] [place] [address] Hanh Moore CRNP [address] [facility] [place] [address] Normal in third trimester*; Family history of congenital anomaly; History of loop electrosurgical excision procedure (LEEP) of cervix affecting , antepartum Allergies Active Allergy Reactions Criticality Noted Date Comments Docosanol Edema face/lips/tongue High 06/13/2012 documented as of this encounter (statuses as of 04/05/2023) Medications Medication Sig Dispensed Refills Start Date End Date Status 19 29-1 MG Oral Tablet Chewable Take by mouth. 0 Active Breast Pump Dispense double electric breast pump. Dx Z39.1 1 Each 0 12/24/2022 Active documented as of this encounter (statuses as of 04/05/2023) Active Problems Problem Noted Date Diagnosed Date [...] as of this encounter (statuses as of 04/05/2023) Resolved Problems Problem Noted Date Diagnosed Date Resolved Date Obesity in , antepartum 09/24/2022 10/25/2022 Overview: Class 1 Benign neoplasm of skin 12/23/2009 090 09/2016 Headache 10/02/2002 04/11/2008 Overview: ICD-10 update of inactive term ADJ DISORDER W/DEPRES MOOD 10/02/2002 0 04/11/2008 FOLLICULITIS 09/08/1998 11/25/2016 Overview: Recurrent, on Buttocks documented as of this encounter (statuses as of 04/05/2023) Immunizations Name Administration Dates Next Due HEP [...] money to buy more. Never true 09/07/19 Within the past 12 months, t he food you bought just didn't last and you didn't have money to get more. Never true 09/06/2022 [place] Depression Scale Answer Date Recorded [place] Depression Scale Total 0 02/17/2023 The thought [...] Sign Reading Time Taken Comments Blood Pressure 120/70 04/05/2023 8:13 AM EST Pulse - - Temperature - - Respiratory Rate - - Oxygen Saturation - - Inhaled Oxygen Concentration - - Weight 107.5 kg (237 lb) 04/05/2023 8:13 AM EST Height 165.1 cm (5' 5") 04/05/2023 8:13 AM EST Body Mass Index 39.44 04/05/2023 8:13 AM EST documented in this encounter Progress Notes * Hanh Moore CRNP - 04/05/2023 8:25 AM EST 39w4d No concerns. Baby is active. No contractions, bleeding, or LOF. IOL 04/14. JARRET Reese * Danielle Goins LPN - 04/05/2023 8:13 AM EST 39w4d Discuss IOL documented in this encounter Plan of Treatment Upcoming Encounters Date Type Department Care Team (Late st Contact Info) Description 04/13/2023 10:45 AM EST Office Visit Gynecology/Obstetrics [facility] [address] [place] [address] Hanh Moore CRNP [address] [place] [address] Health Maintenance Due Date Last Done Comments [...] antepartum documented in this encounter Care Teams Check Inspector Relationship Specialty Start Date End Date Anirudh Cuello MD [address] [facility] [place] [address] PCP - General Family Medicine 02/11/20 documented as of this encounter
--- OUTSIDE RECORDS SUMMARY | 2023-04-14 07:34 | External Medical Summary | Summary of Care ---
Author Name Unknown Organization [facility] Address [address] [place] [address] Phone [phone] Care Team Providers Care Bung Dropper Name Role Phone Anirudh Cuello MD Primary Care Provider +1 -[phone] Reason for Visit * Reason Comments Return Visit Encounter Details Date Type Department Care Team (Latest Contact Info) Description 03/18/2023 7:45 AM EST Office Visit Gynecology/Obstetri Ander Cordon [address] [facility] [place] [address] Aurea De La Cruz PA-C [address] [place] [address] Normal in third trimester*; Family history of [...] money to get more. Never true 09/06/2022 [place] Depression Scale Answer Date Recorded [place] Depression Scale Total 0 02/17/2023 The thought [...] trimester documented in this encounter Care Teams Bung Dropper Relationship Specialty Start Date End Date Anirudh Cuello MD [address] [facility] [place] [address] PCP - General Family Medicine 02/11/20 documented as of this encounter
--- OUTSIDE RECORDS SUMMARY | 2023-04-14 07:34 | External Medical Summary ---
Author Name Unknown Address Unknown Organization [id number]:[facility]ORY [facility] – [place] - [address] [place] [id number] Laboratory Report Ordering Provider Test Date Status TEZ EDDY 03/24/2023 15:25:15 Final Observation Date Value Abnormality Reference (Units) Status Bacteria identified in Specimen by Culture 03/24/2023 15:25:15 No significant growth Final Test: Culture, Urine, Quanti tative
Specimen Source: Urine, Clean Catch
Specimen Type: Urine
Specimen Date: 03/24/2023 3:25 PM
Result Date: 03/25/2023 7:11 PM
Result Status: Final result
Resulting Lab: [facility] – [place]
[address]
[facility] [address]

CULTURE

No significant growth

null Performing Location LAB[facility]ORY [facility] – [place] - [address] [facility] [address]
--- OUTSIDE RECORDS SUMMARY | 2023-04-14 07:34 | External Medical Summary | Summary of Care ---
Author Name Unknown Organization [facility] Address [address] [place] [address] Phone [phone] Care Team Providers Care Senior Software Manager Name Role Phone Anirudh Cuello MD Primary Care Provider +1 -[phone] Reason for Visit * Reason Comments Return Visit Encounter Details Date Type Department Care Team (Latest Contact Info) Description 03/30/2023 8:30 AM EST Office Visit Gynecology/Obstetri [facility] [address] [place] [address] Srinivasa Velasco MD [address] [place] [address] Normal in third trimester*; Family history of congenital anomaly; History of loop electrosurgical excision procedure (LEEP) of cervix affecting , antepartum Allergies Active Allergy Reactions Criticality Noted Date Comments Docosanol Edema face/lips/tongue High 06/13/2012 documented as of this encounter (statuses as of 03/30/2023) Medications Medication Sig Dispensed Refills Start Date End Date Status 19 29-1 MG Oral Tablet Chewable Take by mouth. 0 Active Breast Pump Dispense double electric breast pump. Dx Z39.1 1 Each 0 12/24/2022 Active documented as of this encounter (statuses as of 03/30/2023) Active Problems Problem Noted Date Diagnosed Date [...] as of this encounter (statuses as of 03/30/2023) Resolved Problems Problem Noted Date Diagnosed Date Resolved Date Obesity in , antepartum 09/24/2022 10/25/2022 Overview: Class 1 Benign neoplasm of skin 12/23/2009 090 09/2016 Headache 10/02/2002 04/11/2008 Overview: ICD-10 update of inactive term ADJ DISORDER W/DEPRES MOOD 10/02/2002 0 04/11/2008 FOLLICULITIS 09/08/1998 11/25/2016 Overview: Recurrent, on Buttocks documented as of this encounter (statuses as of 03/30/2023) Immunizations Name Administration Dates Next Due HEP [...] money to get more. Never true 09/06/2022 [place] Depression Scale Answer Date Recorded [place] Depression Scale Total 0 02/17/2023 The thought [...] Reading Time Taken Comments Blood Pressure 120/70 03/30/2023 8:32 AM EST Pulse - - Temperature - - Respiratory Rate - - Oxygen Saturation - - Inhaled Oxygen Concentration - - Weight 107 kg (236 lb) 03/30/2023 8:32 AM EST Height 165.1 cm (5' 5") 03/30/2023 8:32 AM EST Body Mass Index 39.27 03/30/2023 8:32 AM EST documented in this encounter Progress Notes * Srinivasa Velasco MD - 03/30/2023 8:55 AM EST 1st time seeing pt Pt doing well Reviewed chart- Pt denies hx of genital herpes- discussed Valtrex prophylaxis and delivery No complaints RTC 1 weeks * Danielle Goins LPN - 03/30/2023 8:32 AM EST 38w5d Denies any issues documented in this encounter Plan of Treatment Upcoming Encounters Date Type Department Care Team (Late st Contact Info) Description 04/05/2023 8:00 AM EST [facility] [address] [place] [address] Hanh Moore CRNP [address] [place] [address] Health Maintenance Due Date Last Done Comments [...] antepartum documented in this encounter Care Teams Senior Software Manager Relationship Specialty Start Date End Date Anirudh Cuello MD [address] [facility] [place] [address] PCP - General Family Medicine 02/11/20 documented as of this encounter
--- OUTSIDE RECORDS SUMMARY | 2023-04-14 07:35 | External Medical Summary ---
Author Name Unknown Address Unknown Organization [id number]:[facility]ORY [facility] – [place] - [address] [place] [address] Laboratory Report Ordering Provider Test Date Status TEZ EDDY 03/02/2023 08:16:18 Final Observation Date Value Abnormality Reference (Units ) Status Iron 03/02/2023 08:16:18 223 Above high normal 33-151 (ug/dL) Final Iron-binding capacity 03/02/2023 08:16:18 439 Above high normal 250-425 (ug/dL) Final Transferrin Sat % 03/02/2023 08:16:18 51 15-55 (%) Final Performing Location [facility] – [place] - [address] [place] [address]
--- OUTSIDE RECORDS SUMMARY | 2023-04-14 07:35 | External Medical Summary ---
Author Name Unknown Address Unknown Organization [id number][place] [facility] [place] [address] [facility] [address] Laboratory Report Ordering Provider Test Date Status TZE EDDY 03/02/2023 08:16:18 Final Observation Date Value Abnormality Reference (Units ) Status Retic, % (auto) 03/02/2023 08:16:18 2.39 Above high normal 0.80-1.90 (%) Final Reticulocytes, Absolute 03/02/2023 08:16:18 93.4 31.3-100.1 (K/uL) Final Reticulocyte fraction, immature 03/02/2023 08:16:18 35.7 Above high normal 2.5-20.6 (%) Final Reticulocyte HGB 03/02/2023 08:16:18 28.9 Below low normal 29.7-37.4 (pg) Final Performing Location [facility] [place] [address] [facility] [address]
--- OUTSIDE RECORDS SUMMARY | 2023-04-14 07:35 | External Medical Summary | Summary of Care ---
Author Name Unknown Organization [facility] Address [address] [place] [address] Phone [phone] Care Team Providers Care Contour Band Saw Operator Vertical Name Role Phone Anirudh Cuello MD Primary Care Provider [phone] [phone] Reason for Visit * Reason Comments Return Visit Encounter Details Date Type Department Care Team (Late st Contact Info) Description 02/17/2023 7:30 AM EST Office Visit Gynecology/Obstetri [facility] [address] [place] [address] Carol Jacob CRNP [address] [facility] [place] [address] Normal in third trimester*; Family history of congenital anomaly; History of loop electrosurgical excision procedure (LEEP) of cervix affecting in third trimester Allergies Active Allergy Reactions Criticality Noted Date Comments Docosanol Edema face/lips/tongue High 06/13/2012 documented as of this encounter (statuses as of 02/17/2023) Medications Medication Sig Dispensed Refills Start Date End Date Status 19 29-1 MG Oral Tablet Chewable Take by mouth. 0 Active Breast Pump Dispense double electric breast pump. Dx Z39.1 1 Each 0 12/24/2022 Active documented as of this encounter (statuses as of 02/17/2023) Active Problems Problem Noted Date Diagnosed Date [...] as of this encounter (statuses as of 02/17/2023) Resolved Problems Problem Noted Date Diagnosed Date Resolved Date Obesity in , antepartum 09/24/2022 10/25/2022 Overview: Class 1 Benign neoplasm of skin 12/23/20090 09/2016 Headache 10/02/2002 04/11/2008 Overview: ICD-10 update of inactive term ADJ DISORDER W/DEPRES MOOD 10/02/2002 0 04/11/2008 FOLLICULITIS 09/08/1998 11/25/2016 Overview: Recurrent, on Buttocks documented as of this encounter (statuses as of 02/17/2023) Immunizations Name Administration Dates Next Due HEP A - Hepatitis A (Adult > 18 yrs) 02/26/2013 HPV Vaccine, 4-Valent 04/11/2008,05/05/2007,02/18 Hep A - Hepatitis A (ped/ado le, 1-18 Yrs) 05/07/2009 Meningococcal Conjugate Vacc ine (Menactra/Menveo) 05/26/2006 PPD 01/19/2022, 0,04/06/2018,11/25,01/22/2015,02/26/2013 SEASONAL INFLUENZA, PF, 6 M & Above, IM , (FLULAVAL or FLUZONE) 02/11/2020,04/06/2018 Seasonal Influenza, Quadriva lent, No Preserve, [...] money to get more. Never true 09/06/2022 [place] Depression Scale Answer Date Recorded [place] Depression Scale Total 0 02/17/2023 The thought [...] Sign Reading Time Taken Comments Blood Pressure 114/72 02/17/2023 7:19 AM EST Pulse - - Temperature - - Respiratory Rate - - Oxygen Saturation - - Inhaled Oxygen Concentration - - Weight 103 kg (227 lb) 02/17/2023 7:19 AM EST Height 165.1 cm (5' 5") 02/17/2023 7:19 AM EST Body Mass Index 37.77 02/17/2023 7:19 AM EST documented in this encounter Progress Notes * Carol Jacob CRNP - 02/17/2023 7:38 AM EST 32w6d Doing well, good movement. Denies ctx/bleeding/leaking. Discussed choosing pediatricians. Repeat CBC in 2 weeks. Discussed [facility] and to call with any concerns. JARRET Monsalve * Catina Pitt LPN - 02/17/2023 7:23 AM EST 32w6d Denies concerns. Still has not heard from [facility]. Had localized reaction to tdap- swelling and itchy for about 1 1/2 weeks. documented in this encounter Plan of Treatment Scheduled Orders Name Type Priority Associated Diagnoses Orde r Schedule CBC WITH WBC DIFFERENTIAL AND ANEMIA REFLEX WORKUP Lab Routine Normal in third trimester Expected: 03/03/2023 (Approximate), Expires: 02/18/2024 Health Maintenance Due Date Last Done Comments [...] trimester documented in this encounter Care Teams Contour Band Saw Operator Vertical Relationship Specialty Start Date End Date Anirudh Cuello MD [address] [place] [address] PCP - General Family Medicine 02/11/20 documented as of this encounter
--- OUTSIDE RECORDS SUMMARY | 2023-04-14 07:35 | External Medical Summary | Summary of Care ---
Author Name Unknown Organization [facility] Address [address] [place] [address] Phone [phone] Care Team Providers Care Bicycle Designer Name Role Phone Anirudh Cuello MD Primary Care Provider [phone] [phone] Reason for Visit * Reason Comments Return Visit Encounter Details Date Type Department Care Team (Latest Contact Info) Description 01/28/2023 9:15 AM EST Office Visit Gynecology/Obstetri [facility] Cordon [address] [facility] [place] [address] Aurea De La Cruz PA-C [address] [place] [address] Normal in third trimester*; Family history of congenital anomaly; History of loop electrosurgical excision procedure (LEEP) of cervix affecting in third trimester; Need for ybxxswnpce-yskuljb-mruwm ssis (Tdap) vaccine Allergies Active Allergy Reactions Criticality Noted Date Comments Docosanol Edema face/lips/tongue High 06/13/2012 documented as of this encounter (statuses as of 01/28/2023) Medications Medication Sig Dispensed Refills Start Date End Date Status 19 29-1 MG Oral Tablet Chewable Take by mouth. 0 Active Breast Pump Dispense double electric breast pump. Dx Z39.1 1 Each 0 12/24/2022 Active documented as of this encounter (statuses as of 01/28/2023) Active Problems Problem Noted Date Diagnosed Date [...] as of this encounter (statuses as of 01/28/2023) Resolved Problems Problem Noted Date Diagnosed Date Resolved Date Obesity in , antepartum 09/24/2022 10/25/2022 Overview: Class 1 Benign neoplasm of skin 12/23/200909/2016 Headache 10/02/2002 04/11/2008 Overview: ICD-10 update of inactive term ADJ DISORDER W/DEPRES MOOD 10/02/2002 0 04/11/2008 FOLLICULITIS 09/08/1998 11/25/2016 Overview: Recurrent, on Buttocks documented as of this encounter (statuses as of 01/28/2023) Immunizations Name Administration Dates Next Due HEP [...] money to get more. Never true 09/06/2022 [place] Depression Scale Answer Date Recorded [place] Depression Scale Total 0 01/13/2023 The thought of harming myself has occurred to me . Never 01/13/2023 Estimated Date of Delivery Comme nts Yes [...] Sign Reading Time Taken Comments Blood Pressure 100/60 01/28/2023 9:12 AM EST Pulse - - Temperature - - Respiratory Rate - - Oxygen Saturation - - Inhaled Oxygen Concentration - - Weight 97.3 kg (214 lb 6.4 oz) 01/28/2023 9:12 A M EST Height 165.1 cm (5' 5") 01/28/2023 9:12 AM EST Body Mass Index 35.68 01/28/2023 9:12 AM EST documented in this encounter Progress Notes * Aurea De La Cruz PA-C - 01/28/2023 9:35 AM EST 30w0d Denies concerns. Denies VB/LOF/contractions. Pos fm. Counseled on TdaP, accepts and given. Still has not heard about breast pump, will resubmit order to [facility]. Once daily iron supplement recommended, pt plans to hand picker. RTC in 2 weeks Aurea De La Cruz PA-C * Violette Warner LPN - 01/28/2023 9:17 AM EST 30w0d Pt denies any concerns, desires tdap today documented in this encounter Nursing Notes * Violette Warner LPN - 01/28/2023 10:01 AM EST Patient here for tdap injection. Patient doing well no complaints. Injection given IM as ordered. Patient tolerated well. Patient to follow up as directed. Patient instructed to call if any complications. Patient verbalized understanding of instructions given. Injection site: Left Deltoid Medication Source: Dispensed stock medication documented in this encounter Plan of Treatment Upcoming Encounters Date Type Department Care Team (Late st Contact Info) Description 02/15/2023 8:30 AM EST Office Visit Gynecology/Obstetrics Jacobsontiago Cordon [address] [place] [address] BackerCarol CRNP [address] [place] [address] Health Maintenance Due Date Last Done Comments COVID-19 Vaccine (#1) 01/05/1992 Depression Screening 02/10/2021 02/11/2020 Influenza Vaccine (FLU shot) (#1) 2022 02/11/2020, 04/06/2018, 11/25/2016, Additional history exists Pap Smear 04/16/2025 04/16/2022, 120 06/2018, 04/01/2017, Additional history exists Cervical Cancer [...] (LEEP) of cervix affecting in third trimester Need for ltgsfgrosm-xlvkgnk-cwuetpjgx (Tdap) vaccine Need for prophylactic vaccination with combined mzklfydjup-fwqzomi-rpcvyjafz (DTP) vaccine documented in this encounter Care Teams Bicycle Designer Relationship Specialty Start Date End Date Anirudh Cuello MD [address] [place] [address] PCP - General Family Medicine 02/11/20 documented as of this encounter
--- OUTSIDE RECORDS SUMMARY | 2023-04-14 07:35 | External Medical Summary ---
Author Name Unknown Address Unknown Organization [id number]:[facility] [place] [address] [place] [address] Laboratory Report Ordering Provider Test Date Status DIANE ROCHE 01/13/2023 11:43:56 Final Observation Date Value Abnormality Reference (Units ) Status Folic Acid 01/13/2023 11:43:56 9.9 >4.5 (ng/ mL) Final Performing Location [facility] - [address] [place] [address]
--- OUTSIDE RECORDS SUMMARY | 2023-04-14 07:35 | External Medical Summary | Summary of Care ---
Author Name Unknown Organization [facility] Address [address] [place] [address] Phone [phone] Care Team Providers Care Retail Pharmacist Name Role Phone Anirudh Cuello MD Primary Care Provider [phone] [phone] Reason for Visit * Reason Comments Outpatient Testing Encounter Details Date Type Department Care Team (Late st Contact Info) Description 03/02/2023 8:30 AM EST Laboratory Laboratory, [facility] [address] [place] [phone] [facility] [address] [place] [address] Normal in third trimester Allergies Active Allergy Reactions Criticality Noted Date Comments Docosanol Edema face/lips/tongue High 06/13/2012 documented as of this encounter (statuses as of 03/02/2023) Medications Medication Sig Dispensed Refills Start Date End Date Status 19 29-1 MG Oral Tablet Chewable Take by mouth. 0 Active Breast Pump Dispense double electric breast pump. Dx Z39.1 1 Each 0 12/24/2022 Active documented as of this encounter (statuses as of 03/02/2023) Active Problems Problem Noted Date Diagnosed Date [...] as of this encounter (statuses as of 03/02/2023) Resolved Problems Problem Noted Date Diagnosed Date Resolved Date Obesity in , antepartum 09/24/2022 10/25/2022 Overview: Class 1 Benign neoplasm of skin 12/23/2009 0909/2016 Headache 10/02/2002 04/11/2008 Overview: ICD-10 update of inactive term ADJ DISORDER W/DEPRES MOOD 10/02/2002 0 04/11/2008 FOLLICULITIS 09/08/1998 11/25/2016 Overview: Recurrent, on Buttocks documented as of this encounter (statuses as of 03/02/2023) Immunizations Name Administration Dates Next Due HEP [...] money to get more. Never true 09/06/2022 [place] Depression Scale Answer Date Recorded [place] Depression Scale Total 0 02/17/2023 The thought [...] on file documented as of this encounter Plan of Treatment Upcoming Encounters Date Type Department Care Team (Late st Contact Info) Description 03/18/2023 7:45 AM EST Office Visit Gynecology/Obstetrics Jacobsontiago Cordon [address] [place] [address] Aurea De La Cruz PA-C [address] [place] [address] Pending Results Name Type Priority Associated Diagnoses Date /Time CBC WITH WBC DIFFERENTIAL AND ANEMIA REFLEX WORKUP Lab Routine Normal in third trimester 03/02/2023 8:16 AM EST ANEMIA CBC Lab Routine Normal in third trimester 03/02/2023 8:16 AM EST DIFFERENTIAL, AUTOMATED Lab Routine Normal in third trimester 03/02/2023 8:16 AM EST ANEMIA REFLEX CHEMISTRY HOLD Lab Routine Normal in third trimester 03/02/2023 8:16 AM EST Health Maintenance Due Date Last Done [...] encounter Visit Diagnoses Diagnosis Normal in third trimester documented in this encounter Care Teams Retail Pharmacist Relationship Specialty Start Date End Date Anirudh Cuello MD [address] [place] [address] PCP - General Family Medicine 02/11/20 documented as of this encounter
--- OUTSIDE RECORDS SUMMARY | 2023-04-14 07:35 | External Medical Summary | Summary of Care ---
Author Name Unknown Organization [facility] Address [address] [place] [address] Phone [phone] Care Team Providers Care Loading Unit Operator Seating Name Role Phone Anirudh Cuello MD Primary Care Provider [phone] [phone] Reason for Visit * Reason Comments Outpatient Testing Encounter Details Date Type Department Care Team (Late st Contact Info) Description 01/13/2023 10:30 AM EDT Laboratory Laboratory, [facility] [address] [place] [phone] [facility] [address] [place] [address] Normal in second trimester Allergies Active Allergy Reactions Criticality Noted Date Comments Docosanol Edema face/lips/tongue High 06/13/2012 documented as of this encounter (statuses as of 01/13/2023) Medications Medication Sig Dispensed Refills Start Date End Date Status 19 29-1 MG Oral Tablet Chewable Take by mouth. 0 Active Breast Pump Dispense double electric breast pump. Dx Z39.1 1 Each 0 12/24/2022 Active documented as of this encounter (statuses as of 01/13/2023) Active Problems Problem Noted Date Diagnosed Date [...] as of this encounter (statuses as of 01/13/2023) Resolved Problems Problem Noted Date Diagnosed Date Resolved Date Obesity in , antepartum 09/24/2022 10/25/2022 Overview: Class 1 Benign neoplasm of skin 12/23/2009 090 09/2016 Headache 10/02/2002 04/11/2008 Overview: ICD-10 update of inactive term ADJ DISORDER W/DEPRES MOOD 10/02/2002 0 04/11/2008 FOLLICULITIS 09/08/1998 11/25/2016 Overview: Recurrent, on Buttocks documented as of this encounter (statuses as of 01/13/2023) Immunizations Name Administration Dates Next Due HEP [...] Inj 02/07/2007 TDAP (age 10 and older)(Boostrix) 06/17/2016,09/2005 Varicella Vaccine (Chicken Pox) 03/01/2007 documented as [...] money to get more. Never true 09/06/2022 [place] Depression Scale Answer Date Recorded [place] Depression Scale Total 0 01/13/2023 The thought [...] Care Team (Late st Contact Info) Description 01/28/2023 9:15 AM EST Office Visit Gynecology/Obstetrics Ander Cordon [address] [place] [address] Aurea De La Cruz PA-C [address] [place] [address] Pending Results Name Type Priority Associated Diagnoses Date /Time SYPHILIS ANTIBODY SCREEN WITH REFLEX TO RPR Lab Routine Normal in second trimester 01/13/2023 11:43 AM EDT CBC WITH WBC DIFFERENTIAL AND ANEMIA REFLEX WORKUP Lab Routine Normal in second trimester 01/13/2023 11:43 AM EDT 50-G GESTATIONAL GLUCOSE, 1 HOUR Lab Routine Normal in second trimester 01/13/2023 11:43 AM EDT SYPHILIS ANTIBODY SCREEN Lab Routine Normal in second trimester 01/13/2023 11:43 AM EDT ANEMIA CBC Lab Routine Normal in second trimester 01/13/2023 11:43 AM EDT DIFFERENTIAL, AUTOMATED Lab Routine Normal in second trimester 01/13/2023 11:43 AM EDT ANEMIA REFLEX CHEMISTRY HOLD Lab Routine Normal in second trimester 01/13/2023 11:43 AM EDT Health Maintenance Due Date Last Done Comments COVID-19 Vaccine (#1) 01/05/1992 Depression Screening 02/10/2021 02/11/2020 Influenza Vaccine (FLU shot) (#1) 2022 02/11/2020, 04/06/2018, 11/25/2016, Additional history exists Pap Smear 04/16/2025 04/16/2022, 12/0 06/2018, 04/01/2017, Additional history exists DTaP,Tdap,and Td Vaccines (7 - Td or Tdap) 06/17/2026 06/17/2016, 04/27/2005, 04/04/1996, Additional history exists Cervical Cancer Screening 04/16/2027 HPV/Co-Test 04/16/2027 04/16/2022 Hepatitis B Completed 04/23/1992, 05/1991, 1991 MENINGOCOCCAL [...] this encounter Visit Diagnoses Diagnosis Normal in second trimester documented in this encounter Care Teams Loading Unit Operator Seating Relationship Specialty Start Date End Date Anirudh Cuello MD [address] [place] [address] PCP - General Family Medicine 02/11/20 documented as of this encounter
--- OUTSIDE RECORDS SUMMARY | 2023-04-14 07:35 | External Medical Summary ---
Author Name Unknown Address Unknown Organization [id number]:LABORATORY [facility] [place] - [facility] [address] [place] [address] Laboratory Report Ordering Provider Test Date Status NUNUTEZ 03/02/2023 08:16:18 Final Observation Date Value Abnormality Reference (Units ) Status Creatinine 03/02/2023 08:16:18 0.5 0.5-1.0 (mg/dL) Final Glomerular filtration rate/1.73 sq M.predicted [Volume Rate/Area] in Serum, Plasma or Blood by Creatinine-based formula (CKD-EPI) 03/02/2023 08:16:18 >90 >=60 (mL/min) Final eGFR is calculated based on the CKD-EPI 2020 equation Performing Location LABORATORY [facility] [place] - [facility] [address] [facility] [address]
--- OUTSIDE RECORDS SUMMARY | 2023-04-14 07:35 | External Medical Summary ---
Author Name Unknown Address Unknown Organization [id number]:[facility]ATORY [facility] [place] [address] [place] [address] Laboratory Report Ordering Provider Test Date Status DIANE ROCHE 01/13/2023 11:43:56 Final Observation Date Value Abnormality Reference (Units ) Status Vitamin B12 01/13/2023 11:43:56 802 [id number] (pg/mL) Final Performing Location [facility] - [address] [place] [address]
--- OUTSIDE RECORDS SUMMARY | 2023-04-14 07:35 | External Medical Summary ---
Author Name Unknown Address Unknown Organization [id number]:LAB[facility]ORY [facility] [place] - [address] [facility] [address] Laboratory Report Ordering Provider Test Date Status TEZ EDDY 03/02/2023 08:16:18 Final Observation Date Value Abnormality Reference (Units ) Status SYNC LEUKOCYTES IN BLOOD BY AUTOMATED COUNT 03/02/2023 08:16:18 12.53 Above high normal 4.00-10.80 (K/uL) Final Segs 03/02/2023 08:16:18 81.3 Above high normal 40.0-75.0 (%) Final Lymphs % 03/02/2023 08:16:18 9.4 Below low normal 18.0-42.0 (%) Final Monos 03/02/2023 08:16:18 6.3 1.0-11.0 (%) Final Eosinophils 03/02/2023 08:16:18 0.6 0.0-6.0 (%) Final Basos 03/02/2023 08:16:18 0.2 0.0-2.0 (%) Final Immature Granulocyte, Percent 03/02/2023 08:16:18 2.2 Above high normal 0.0-2.0 (%) Final Absolute Segs 03/02/2023 08:16:18 10.18 Above high normal 1.80-7.70 (K/uL) Final Lymphs, absolute 03/02/2023 08:16:18 1.18 1.00-4.80 (K/ul) Final Monos, Abs 03/02/2023 08:16:18 0.79 0.00-1.10 (K/uL) Final Eos, Abs 03/02/2023 08:16:18 0.08 0.00-0.70 (K/uL) Final Basos, Abs 03/02/2023 08:16:18 0.02 0.00-0.20 (K/uL) Final Immature Granulocytes, Number 03/02/2023 08:16:18 0.28 Above high normal 0.00-0.20 (K/uL) Final Performing Location LABORATORY [facility] [place] - [address] [facility] [address]
--- OUTSIDE RECORDS SUMMARY | 2023-04-14 07:35 | External Medical Summary ---
Author Name Unknown Address Unknown Organization [id number]:LABORATORY [facility] [place] - [address] [facility] [address] Laboratory Report Ordering Provider Test Date Status KAYLYNN SPANGLER 03/18/2023 09:05:24 Final Observation Date Value Abnormality Reference (Units ) Status Streptococcus agalactiae DNA [Presence] in Specimen by SHAGUFTA with probe detection 03/18/2023 09:05:24 Negative Negative Final No Group B Streptococcus det ected by culture-enhanced PCR (amplified probe).
The collection of vaginal/rectal swab specimen combinations (FDA approved specimen type) is optimal for the detection of Group B Streptococcus. Single source collection (vaginal only or rectal only) or alternate specimen sources may lead to false negative results. Performing Location LABORATORY [facility] [place] - [address] [facility] [address]
--- OUTSIDE RECORDS SUMMARY | 2023-04-14 07:35 | External Medical Summary ---
Author Name Unknown Address Unknown Organization [id number]:LABORATORY [facility] [place] - [address] [facility] [address] Laboratory Report Ordering Provider Test Date Status DIANE ROCHE 01/13/2023 11:43:56 Final Observation Date Value Abnormality Reference (Units ) Status TSH 01/13/2023 11:43:56 1.61 0.27-4.20 (uIU/mL) Final Performing Location [facility] - [address] [facility] [address]
--- OUTSIDE RECORDS SUMMARY | 2023-04-14 07:35 | External Medical Summary ---
Author Name Unknown Address Unknown Organization [id number]:[facility] [facility] [place] [address] [place] [address] Laboratory Report Ordering Provider Test Date Status DIANE ROCHE 01/13/2023 11:43:56 Final Observation Date Value Abnormality Reference (Units ) Status Glucose [Moles/volume] in Serum or Plasma --1 hour post 50 g glucose PO 01/13/2023 11:43:56 122 70-129 (mg/dL) Final Performing Location [facility] [place] [address] [place] [address]
--- OUTSIDE RECORDS SUMMARY | 2023-04-14 07:35 | External Medical Summary ---
Author Name Unknown Address Unknown Organization [id number]:[facility] - [address] [place] [address] Laboratory Report Ordering Provider Test Date Status DIANE ROCHE 01/13/2023 11:43:56 Final Observation Date Value Abnormality Reference (Units ) Status Ferritin 01/13/2023 11:43:56 12 Below low normal 13- 150 (ng/mL) Final Performing Location [facility] - [address] [place] [address]
--- OUTSIDE RECORDS SUMMARY | 2023-04-14 07:35 | External Medical Summary ---
Author Name Unknown Address Unknown Organization [id number]:[facility] - [address] [place] [address] Laboratory Report Ordering Provider Test Date Status TEZ EDDY 03/02/2023 08:16:18 Final Observation Date Value Abnormality Reference (Units ) Status Ferritin 03/02/2023 08:16:18 17 13-150 (ng /mL) Final Performing Location [facility] - [address] [place] [address]
--- OUTSIDE RECORDS SUMMARY | 2023-04-14 07:35 | External Medical Summary | Summary of Care ---
Author Name Unknown Organization [facility] Address [address] [place] [address] Phone [phone] Care Team Providers Care Vendor Representatives Name Role Phone Anirudh Cuello MD Primary Care Provider [phone] [phone] Reason for Visit * Reason Comments Return Visit Encounter Details Date Type Department Care Team (Late st Contact Info) Description 01/13/2023 10:45 AM EDT Office Visit Gynecology/Obstetric s Ander Cordon [address] [facility] [place] [address] Hanh Moore CRNP [address] [place] [address] Normal in third trimester*; Family history of congenital anomaly Allergies Active Allergy Reactions Criticality Noted Date [...] money to get more. Never true 09/06/2022 May Depression Scale Answer Date Recorded May Depression Scale Total 0 01/13/2023 The thought [...] Sign Reading Time Taken Comments Blood Pressure 102/70 01/13/2023 10:33 AM EDT Pulse - - Temperature - - Respiratory Rate - - Oxygen Saturation - - Inhaled Oxygen Concentration - - Weight 96.1 kg (211 lb 12.8 oz) 023 10:33 AM EDT Height 165.1 cm (5' 5") 01/13/2023 10:3 3 AM EDT Body Mass Index 35.25 01/13/2023 10:33 AM EDT documented in this encounter Progress Notes * JARRET Reese - 01/13/2023 11:04 AM EDT 27w6d Had a few days of abdominal pain, one day of vomiting. Feeling fine now. No other concerns. Baby moving well. No contractions, bleeding, or LOF. Glucola today. JARRET Reese * Violette Warner LPN - 01/13/2023 10:46 AM EDT 27w6d Pt reports she had n/v 1/day last week, did have some right sided pain during that went away when she wasn't sick anymore. Pt denies any other concerns. Desires tdap at next visit, declines flu shot. documented in this encounter Plan of Treatment Upcoming Encounters Date Type Department Care Team (Late st Contact Info) Description 01/28/2023 9:15 AM EST Office Visit Gynecology/Obstetrics Ander Cordon [address] [place] [address] Aurea De La Cruz PA-C [address] [place] [address] Health Maintenance Due Date Last Done Comments [...] congenital anomaly Family history of congenital anomalies documented in this encounter Care Teams Vendor Representatives Relationship Specialty Start Date End Date Anirudh Cuello MD [address] [place] [address] PCP - General Family Medicine 02/11/20 documented as of this encounter
--- OUTSIDE RECORDS SUMMARY | 2023-04-14 07:35 | External Medical Summary | Summary of Care ---
Author Name Unknown Organization [facility] Address [address] [place] [address] Phone [phone] Care Team Providers Care Personnel Administrator Name Role Phone Anirudh Cuello MD Primary Care Provider [phone] [phone] Reason for Visit * Reason Comments Return Visit Encounter Details Date Type Department Care Team Description 11/26/2022 Office Visit Gynecology/Obstetrics [facility] [address] [place] [address] Hanh Moore CRNP [address] [place] [address] Normal in second trimester*; Family history of congenital anomaly Allergies Active Allergy Reactions Severity Noted Date Comments Docosanol Edema face/lips/tongue High 06/13/2012 documented as of this encounter (statuses as of 11/26/2022) Medications Medication Sig Dispensed Refills Start Date End Date Status 19 29-1 MG Oral Tablet Chewable Take by mouth. 0 Activ e documented as of this encounter (statuses as of 11/26/2022) Active Problems Problem Noted Date H/O LEEP (loop electrosurgic al excision procedure) of cervix complicating 10/25/2022 Normal 09/24/2022 Family history of congenital anomaly 09/2022 Overview: FOB enlarged aorta Wellness examination 01/19/2022 [...] as of this encounter (statuses as of 11/26/2022) Resolved Problems Problem Noted Date Resolved Date Obesity in , antepartum 09/24/2022 10/25/2022 Overview: Class 1 Benign neoplasm of skin 12/23/2009 11/26/19 17 Headache 10/02/2002 04/11/2008 Overview: ICD-10 update of inactive term ADJ DISORDER W/DEPRES MOOD 10/02/200204/11 FOLLICULITIS 09/08/1998 11/25/2016 Overview: Recurrent, on Buttocks documented as of this encounter (statuses as of 11/26/2022) Immunizations Name Administration Dates Next Due HEP A - Hepatitis A (Adult > 18 yrs) 02/26/2013 HPV Vaccine, 4-Valent 04/11/2008,05/05/2007,02/18 Hep A - Hepatitis A (ped/ado le, 1-18 Yrs) 05/07/2009 Meningococcal Conjugate Vacc ine (Menactra/Menveo) 05/26/2006 PPD 01/19/2022, 0,04/06/2018,11/25,01/22/2015,02/26/2013 Seasonal Influenza, PF, 6 mo ns & Above, IM , (Flulaval) 02/11/2020,04/06/2018 Seasonal Influenza, Quadriva lent, No Preserve, [...] = 0.6 oz pur e alcohol) rarely Food Insecurity Answer Date Recorded Within the past 12 months, y ou worried that your food would run out before you got money to buy more. Never true 09/07/2022 Within the past 12 months, t he food you bought just didn't last and you didn't have money to get more. Never true 09/07/2022 Estimated Date of Delivery Comme nts Yes 04/08/2023 Based on last me nstrual period of 07/02/2022 Sex Assigned at Date Recorded Female 09/06/2022 9:13 PM E DT Job Start Date Occupation Industry Not on file Not on file Not on file documented as of this encounter Last Filed Vital Signs Vital Sign Reading Time Taken Comments Blood Pressure 100/78 11/26/2022 10:35 AM EDT Pulse - - Temperature - - Respiratory Rate - - Oxygen Saturation - - Inhaled Oxygen Concentration - - Weight 91 kg (200 lb 9.6 oz) 11/26/2022 10:35 AM EDT Height 165.1 cm (5' 5") 11/26/2022 10:35 AM EDT Body Mass Index 33.38 11/26/2022 10:35 AM EDT documented in this encounter Progress Notes * JARRET Reese - 11/26/2022 10:47 AM EDT 21w No concerns. Feeling some FM. No bleeding, no n/v. Still interested in Qnatal, hasn't checked coverage. Will call if desired. Anatomy u/s today, having a boy. JARRET Reese * Violette Warner LPN - 11/26/2022 10:39 AM EDT 21w0d Pt denies any concerns. documented in this encounter Plan of Treatment Upcoming Encounters Date Type Specialty Care Team Description 12/24/2022 Office Visit Gynecology Obstetrics Hanh Moore CRNP [address] [place] [address] Health Maintenance Due Date Last Done Comments COVID-19 Vaccine (#1) 01/05/1992 Depression Screening 02/10/2021 02/11/2020 Influenza Vaccine (FLU shot) (#1) 2022 02/11/2020, 04/06/2018, 11/25/2016, Additional history exists Pap Smear 04/16/2025 04/16/2022, 06/2018, 04/01/2017, Additional history exists DTaP,Tdap,and Td Vaccines (7 - Td or Tdap) 06/17/2026 06/17/2016, 04/27/2005, 04/04/1996, Additional history exists Cervical Cancer Screening 04/16/2027 HPV/Co-Test 04/16/2027 04/16/2022 Hepatitis B Completed 04/23/1992, 05/1991, 1991 MENINGOCOCCAL (MENACTRA/MENVEO) Aged Out 05/26/2006 No longer eligible based on patient's age to complete this topic GARDASIL-HPV IMMUNIZATION SERIES Completed 04/11/2008, 05/05/2007, 03/01/2007 Hepatitis C Screening Completed 09/24/2022 , 09/24/2022, 09/24/2022 Pneumococcal Vaccine: Pediatrics (0 to 5 Years) and At-Risk Patients (6 to 64 Years) Aged Out No longer eligible based on patient's age to complete this topic documented as of this encounter Medical Devices Not on filedocumented as of this encounter Visit Diagnoses Diagnosis Normal in second trimester- Primary Family history of congenital anomaly Family history of congenital anomalies documented in this encounter Care Teams Personnel Administrator Relationship Specialty Start Date End Date Anirudh Cuello MD [address] [place] [address] PCP - General Family Medicine 02/11/20 documented as of this encounter
--- OUTSIDE RECORDS SUMMARY | 2023-04-14 07:35 | External Medical Summary | Summary of Care ---
Author Name Unknown Organization [facility] Address [address] [place] [address] Phone [phone] Care Team Providers Care Tube Laser Operator Name Role Phone Anirudh Cuello MD Primary Care Provider [phone] Reason for Visit * Reason Comments Return Visit Encounter Details Date Type Department Care Team Description 10/25/2022 Office Visit Gynecology/Obstetric s [facility] [address] [place] [address] BackCarol james CRNP [address] [place] [address] Normal in second trimester*; Family history of congenital anomaly; History of loop electrosurgical excision procedure (LEEP) of cervix affecting in second trimester Allergies Active Allergy Reactions Severity Noted Date Comments Docosanol Edema face/lips/tongue High 06/13/2012 documented as of this encounter (statuses as of 10/25/2022) Medications Medication Sig Dispensed Refills Start Date End Date Status 19 29-1 MG Oral Tablet Chewable Take by mouth. 0 Activ e documented as of this encounter (statuses as of 10/25/2022) Active Problems Problem Noted Date H/O LEEP [...] as of this encounter (statuses as of 10/25/2022) Resolved Problems Problem Noted Date Resolved Date Obesity in , antepartum 09/24/2022 10/25/2022 Overview: Class 1 Benign neoplasm of skin 12/23/2009 11/26/19 17 Headache 10/02/2002 04/11/2008 Overview: ICD-10 update of inactive term ADJ DISORDER W/DEPRES MOOD 10/02/200204/11 FOLLICULITIS 09/08/1998 11/25/2016 Overview: Recurrent, on Buttocks documented as of this encounter (statuses as of 10/25/2022) Immunizations Name Administration Dates Next Due HEP A - Hepatitis A (Adult > 18 yrs) 02/26/2013 HPV Vaccine, 4-Valent 04/11/2008,05/05/2007,02/18 Hep A - Hepatitis A (ped/ado le, 1-18 Yrs) 05/07/2009 Meningococcal Conjugate Vacc ine (Menactra/Menveo) 05/26/2006 PPD 01/19/2022, 0,04/06/2018,11/25,01/22/2015,02/26/2013 Seasonal Influenza, Quadriva lent, No Preserve, 6 Mons & Above, IM 02/11/2020,04/06/2018 Seasonal Influenza, Quadriva lent, No Preserve, [...] Reading Time Taken Comments Blood Pressure 100/60 10/25/2022 8:36 AM EDT Pulse - - Temperature - - Respiratory Rate - - Oxygen Saturation - - Inhaled Oxygen Concentration - - Weight 87.5 kg (193 lb) 10/25/2022 8:36 AM EDT Height 165.1 cm (5' 5") 10/25/2022 8:36 AM EDT Body Mass Index 32.12 10/25/2022 8:36 AM EDT documented in this encounter Progress Notes * JARRET Tom - 10/25/2022 8:42 AM EDT 16w 3d Doing well, occasional HAs that are relieved with adequate hydration. No cramping/bleeding. No movement yet, discussed. Discussed Qnatal, KEVON - she wants to check insurance and will let us know. Anatomy scan with next visit in 4 weeks. JARRET Monsalve documented in this encounter Nursing Notes * JESUSITA Dale - 10/25/2022 8:41 AM EDT 16w3d Pt denies any concerns. documented in this encounter Plan of Treatment Upcoming Encounters Date Type Specialty Care Team Description 11/26/2022 Imaging Radiology 11/26/2022 Office Visit Gynecology Obstetrics Hanh Moore CRNP [address] [place] [address] Scheduled Orders Name Type Priority Associated Diagnoses Orde r Schedule US PREG SINGLE/1ST GEST, 14 WEEKS OR LATER Medical Imaging Routine Normal in second trimester Expected: 11/25/2022 (Approximate), Expires: 11/26/2023 Health Maintenance Due Date Last Done Comments COVID-19 Vaccine (#1) 01/05/1992 Depression Screening, Annual for Pts 12 and Over 02/10/2021 02/11/2020 Influenza Vaccine (FLU shot) (#1) [...] excision procedure (LEEP) of cervix affecting in second trimester documented in this encounter Care Teams Tube Laser Operator Relationship Specialty Start Date End Date Anirudh Cuello MD [address] [place] [address] PCP - General Family Medicine 02/11/20 documented as of this encounter
--- OUTSIDE RECORDS SUMMARY | 2023-04-14 07:35 | External Medical Summary ---
Author Name Unknown Address Unknown Organization [id number]:LABORATORY [facility] [place] - [address] [facility] [address] Laboratory Report Ordering Provider Test Date Status DIANE ROCHE 01/13/2023 11:43:56 Final Observation Date Value Abnormality Reference (Units ) Status SYNC LEUKOCYTES IN BLOOD BY AUTOMATED COUNT 01/13/2023 11:43:56 11.42 Above high normal 4.00-10.80 (K/uL) Final Segs 01/13/2023 11:43:56 80.0 Above high normal 40.0-75.0 (%) Final Lymphs % 01/13/2023 11:43:56 12.0 Below low normal 18.0-42.0 (%) Final Monos 01/13/2023 11:43:56 5.8 1.0-11.0 (%) Final Eosinophils 01/13/2023 11:43:56 0.7 0.0-6.0 (%) Final Basos 01/13/2023 11:43:56 0.4 0.0-2.0 (%) Final Immature Granulocyte, Percent 01/13/2023 11:43:56 1.1 0.0-2.0 (%) Final Absolute Segs 01/13/2023 11:43:56 9.15 Above high normal 1.80-7.70 (K/uL) Final Lymphs, absolute 01/13/2023 11:43:56 1.37 1.00-4.80 (K/ul) Final Monos, Abs 01/13/2023 11:43:56 0.66 0.00-1.10 (K/uL) Final Eos, Abs 01/13/2023 11:43:56 0.08 0.00-0.70 (K/uL) Final Basos, Abs 01/13/2023 11:43:56 0.04 0.00-0.20 (K/uL) Final Immature Granulocytes, Number 01/13/2023 11:43:56 0.12 0.00-0.20 (K/uL) Final Performing Location LABORATORY [facility] [place] - [facility] [address] [place] [address]
--- OUTSIDE RECORDS SUMMARY | 2023-04-14 07:35 | External Medical Summary | Summary of Care ---
Author Name Unknown Organization [facility] Address [address] [place] [address] Phone [phone] Care Team Providers Care Clinical Program Director Name Role Phone Anirudh Cuello MD Primary Care Provider [phone] [phone] Reason for Visit * Reason Comments Return Visit Encounter Details Date Type Department Care Team (Latest Contact Info) Description 03/02/2023 7:45 AM EST Office Visit Gynecology/Obstetri Ander Cordon [address] [facility] [place] [address] Aurea De La Cruz PA-C [address] [place] [address] Normal in third trimester*; Family history of [...] money to get more. Never true 09/06/2022 Dupont Depression Scale Answer Date Recorded Dupont Depression Scale Total 0 02/17/2023 The thought [...] Sign Reading Time Taken Comments Blood Pressure 128/74 03/02/2023 7:55 AM EST Pulse - - Temperature - - Respiratory Rate - - Oxygen Saturation - - Inhaled Oxygen Concentration - - Weight 103.1 kg (227 lb 3.2 oz) 03/02/2023 7:55 AM EST Height 165.1 cm (5' 5") 03/02/2023 7:55 AM EST Body Mass Index 37.81 03/02/2023 7:55 AM EST documented in this encounter Progress Notes * Aurea De La Cruz PA-C - 03/02/2023 8:01 AM EST 34w5d Wears corrective lenses and contacts. Has been noticing some struggles with blurred vision when trying to look at a distance. Better with glasses. BP WNL. Denies PIPER, RUQ pain. Advised wear glasses ifimproved, follow up with insurance coordinator. Denies VB, LOF, contractions. Baby is active. Repeat CBC today, on oral iron for about 3 weeks. Reviewed GBS next appt. RTC in 2 week Aurea De La Cruz PA-C documented in this encounter Nursing Notes * Delisa Choudhury RN - 03/02/2023 7:56 AM EST Patient here for JUAN CARLOS visit 34w5d Having blurry vision recently, denies PIPER, or RUQ No bleeding/leaking Labor instructions Delisa Choudhury RN documented in this encounter Plan of Treatment Upcoming Encounters Date Type Department Care Team (Late st Contact Info) Description 03/02/2023 8:30 AM EST [facility] [address] [place] [id number] Radha Cordon [address] [place] [address] Normal in third trimester 03/18/2023 7:45 AM EST Office Visit Gynecology/Obstetric s Ander Cordon [address] [place] [address] Aurea De La Cruz PA-C [address] [place] [address] Scheduled Orders Name Type Priority Associated Diagnoses Orde r Schedule CBC Lab Routine Normal in third trimester Ordered: 03/02/2023 Health Maintenance Due Date Last Done Comments [...] (LEEP) of cervix affecting in third trimester Normal in third trimester documented in this encounter Care Teams Clinical Program Director Relationship Specialty Start Date End Date Anirudh Cuello MD [address] [place] [address] PCP - General Family Medicine 02/11/20 documented as of this encounter
--- OUTSIDE RECORDS SUMMARY | 2023-04-14 07:35 | External Medical Summary ---
Author Name Unknown Address Unknown Organization [id number]:[place] [place] [facility] [place] [address] Laboratory Report Ordering Provider Test Date Status DIANE ROCHE 01/13/2023 11:43:56 Final Observation Date Value Abnormality Reference (Units ) Status Creatinine 01/13/2023 11:43:56 0.5 0.5-1.0 (mg/dL) Final Glomerular filtration rate/1.73 sq M.predicted [Volume Rate/Area] in Serum, Plasma or Blood by Creatinine-based formula (CKD-EPI) 01/13/2023 11:43:56 >90 >=60 (mL/min) Final eGFR is calculated based on the CKD-EPI 2020 equation Performing Location LABORATORY [facility] [place] - [facility] [place] [address]
--- OUTSIDE RECORDS SUMMARY | 2023-04-14 07:35 | External Medical Summary | Summary of Care ---
Author Name Unknown Organization [facility] Address [address] [place] [address] Phone [phone] Care Team Providers Care Delivery Driver Assistant Name Role Phone Anirudh Cuello MD Primary Care Provider [phone] [phone] Reason for Visit * Reason Comments Return Visit Encounter Details Date Type Department Care Team Description 12/24/2022 Office Visit Gynecology/Obstetric s [facility] [address] [place] [address] Hanh Moore CRNP [address] [place] [address] Normal in second trimester*; Family history of congenital anomaly; History of loop electrosurgical excision procedure (LEEP) of cervix affecting in second trimester Allergies Active Allergy Reactions Severity Noted Date Comments Docosanol Edema face/lips/tongue High 06/13/2012 documented as of this encounter (statuses as of 12/24/2022) Medications Medication Sig Dispensed Refills Start Date End Date Status 19 29-1 MG Oral Tablet Chewable Take by mouth. 0 Active Breast Pump Dispense double electric breast pump. Dx Z39.1 1 Each 0 12/24/2022 Active documented as of this encounter (statuses as of 12/24/2022) Active Problems Problem Noted Date H/O LEEP [...] as of this encounter (statuses as of 12/24/2022) Resolved Problems Problem Noted Date Resolved Date Obesity in , antepartum 09/24/2022 10/25/2022 Overview: Class 1 Benign neoplasm of skin 12/23/2009 11/26/19 17 Headache 10/02/2002 04/11/2008 Overview: ICD-10 update of inactive term ADJ DISORDER W/DEPRES MOOD 10/02/200204/11 FOLLICULITIS 09/08/1998 11/25/2016 Overview: Recurrent, on Buttocks documented as of this encounter (statuses as of 12/24/2022) Immunizations Name Administration Dates Next Due HEP [...] Sign Reading Time Taken Comments Blood Pressure 108/60 12/24/2022 8:24 AM EDT Pulse - - Temperature - - Respiratory Rate - - Oxygen Saturation - - Inhaled Oxygen Concentration - - Weight 93 kg (205 lb) 12/24/2022 8:24 AM EDT Height 165.1 cm (5' 5") 12/24/2022 8:24 AM EDT Body Mass Index 34.11 12/24/2022 8:24 AM EDT documented in this encounter Progress Notes * JARRET Reese - 12/24/2022 8:47 AM EDT 25w0d Complaints: none Feeling well. +FM. No contractions, bleeding, or LOF. Glucola with next visit. Breast pump rx sent to [facility]. JARRET Reese documented in this encounter Plan of Treatment Upcoming Encounters Date Type Specialty Care Team Description 01/13/2023 Laboratory Laboratory Radha Cordon [place] [address] [place] [address] 01/13/2023 Office Visit Gynecology Obstetrics Teresa HanhJARRET Melgar [address] [place] [address] Scheduled Orders Name Type Priority Associated Diagnoses Orde r Schedule SYPHILIS ANTIBODY SCREEN WITH REFLEX TO RPR Lab Routine Normal in second trimester Expected: 01/07/2023, Expires: 12/25/2023 CBC WITH WBC DIFFERENTIAL AND ANEMIA REFLEX WORKUP Lab Routine Normal in second trimester Expected: 01/07/2023, Expires: 12/25/2023 50-G GESTATIONAL GLUCOSE, 1 HOUR Lab Routine Normal in second trimester Expected: 01/07/2023, Expires: 12/25/2023 Health Maintenance Due Date Last Done Comments [...] trimester documented in this encounter Care Teams Delivery Driver Assistant Relationship Specialty Start Date End Date Anirudh Cuello MD [address] [place] [address] PCP - General Family Medicine 02/11/20 documented as of this encounter
--- OUTSIDE RECORDS SUMMARY | 2023-04-14 07:35 | External Medical Summary ---
Author Name Unknown Address Unknown Organization [id number]:LABORATORY [facility] [place] - [address] [facility] [place] [facility] [address] Laboratory Report Ordering Provider Test Date Status DIANE ROCHE 01/13/2023 11:43:56 Final Observation Date Value Abnormality Reference (Units ) Status Treponema pallidum Ab [Presence] in Serum by Immunoassay 01/13/2023 11:43:56 Nonreactive Nonreactive Final No serologic evidence of syp hilis. No additional testing clinicially indicated at this time. Consider repeat testing in 2-4 weeks if acute or primary syphilis is suspected. Performing Location LABORATORY [facility] [place] - [address] [facility] [address]
--- OUTSIDE RECORDS SUMMARY | 2023-04-14 07:35 | External Medical Summary ---
Author Name Unknown Address Unknown Organization [id number]:LABORATORY [facility] [place] - [address] [place] [address] Laboratory Report Ordering Provider Test Date Status DIANE ROCHE 01/13/2023 11:43:56 Final Observation Date Value Abnormality Reference (Units ) Status Iron 01/13/2023 11:43:56 37 33-151 (ug/dL) Final Iron-binding capacity 01/13/2023 11:43:56 435 Above high normal 250-425 (ug/dL) Final Transferrin Sat % 01/13/2023 11:43:56 9 Below low normal 15-55 (%) Final Performing Location LABORATORY [facility] [place] - [address] [place] [address]
[2023-04-14] MEDS ORDERED: OXYTOCIN 30 UNITS/NSS 30 UNITS/500 ML BAG IV PRN (08:44)
[2023-04-14] MEDS ORDERED: LIDOCAINE 1% LOCAL 20 ML VIAL INFIL PRN (08:44)
[2023-04-14] MEDS ORDERED: DINOPROSTONE 10 MG INSERT PV ONE (09:02)
[2023-04-14 09:44] LABS: Hematocrit (blood only) 34.5 % (37.0-47.0); Hemoglobin 11.4 g/dl (12.0-16.0); Mean Corpuscular Hemoglobin 26.7 pg (25.0-34.0); Mean Corpuscular Volume 80.8 fL (80.0-100.0); Mean Platelet Volume 10.3 fL (9.4-12.4); Platelet Count 199 K/uL (130-400); RDW Coefficient of Variation 15.9 % (11.5-14.5); RDW Standard Deviation 46.5 fL (36.4-46.3); Red Blood Count 4.27 M/uL (4.20-5.40); White Blood Count 12.58 K/ul (4.8-10.8)
--- NOTE | 2023-04-14 09:50 | History & Physical Report ---
Date of Service April 14, 2023 Assessment & Plan Admission and Anticipated Discharge Date Admission Date: April 14, 2023 History of Present Illness Primary Care Provider: Angel White MD 32 F P0000 at 40.6 weeks admitted to L&D for post dates induction of labor. GBS is negative. Allergies Allergy/AdvReac Type Severity Reaction Status Date / Time docosanol [From Abreva] Allergy Severe Swelling Verified 04/14/23 07:52 of Lip/Tongue/Throat Home Medications Medication Instructions Recorded Confirmed Type ferrous sulfate 325 mg (65 mg 325 mg PO DAILY 04/14/23 04/14/23 History iron) tablet (iron) vits no.124-ferrous fum 1 tab PO DAILY 04/14/23 04/14/23 History 27 mg iron-folic acid 800 mcg tablet ( Vitamin) Patient History Medical History Herpes labialis No known health problems Surgical History H/O LEEP No history of previous surgery Social History Smoking Status: Never smoker Hx Alcohol Use: No Hx Substance Use: No Preferred Language: Liberian Communication Ability: Effective Disease Management Nurse Required: No Beliefs That Will Affect Care: None marital status: marital status details: Josiah Romero Current Living Situation: Spouse current occupational status: employed current occupation: [employer] Other Information That Helps Us Care for You: No Feels Safe at Home: Yes Safety Concerns: Feels Safe At This Time Diet: regular Assistive Devices: None OB History primip [employer]PER[employer] History neg Review of Systems All systems reviewed & are unremarkable except as noted in HPI & below Physical Exam Constitutional: WD/WN, vitals as above Eyes: PERRL, conjunctivae normal, anicteric sclerae Respiratory: normal respiratory effort, lungs clear to auscultation Cardiovascular: RRR, no murmur, no edema Gastrointestinal (Abdomen): Inspection/Auscultation: abdomen normal to inspection Musculoskeletal: Extremities: extremities normal to inspection Skin: no rashes, warm and dry Neurologic: patellar DTR's 2+ bilat, sensation intact Psychiatric: A+Ox3, euthymic affect Genitourinary: OB Exam Abdomen: + fundal height and + vertex Manual OB Exam: + cervical dilation fingertip, + cervical effacement 50% and + station high OB Exam Monitor Tracing: + external FHT monitor used, + external uterine monitor used and + category I Cervix is firm and posterior. closed and thick. Cervidil 10 mg placed vaginally. Results & Data Vital Signs (Past 12 Hours) Vital Signs Temp Pulse Resp BP 04/14/23 08:00 90 123/72 04/14/23 07:58 36.8 C 18 Laboratory Results Laboratory Results - last 72 hr 04/14/23 09:14 WBC 12.58 H RBC 4.27 Hgb 11.4 L Hct 34.5 L MCV 80.8 MCH 26.7 MCHC 33.0 RDW Std Deviation 46.5 H RDW Coeff of Marii 15.9 H Plt Count 199 MPV 10.3 Code Status & VTE Plan VTE Prophylaxis Plan VTE Prophylaxis will be ordered: No Monitoring External Monitor Cat 1
[2023-04-14] MEDS ORDERED: ONDANSETRON INJ 2 MG/ML 2 ML VIAL IV PRN (17:02)
[2023-04-14] MEDS ORDERED: BUTORPHANOL TARTRATE 1 MG/ML VIAL ONE (17:09)
[2023-04-14] MEDS ORDERED: ONDANSETRON INJ 2 MG/ML 2 ML VIAL ONE (17:09)
[2023-04-14] MEDS: LACTATED RINGER'S 1,000 ML IV PRN (17:12)
[2023-04-14] MEDS: BUTORPHANOL TARTRATE 1 MG/ML VIAL IV PRN (23:21)
[2023-04-15] MEDS ORDERED: miSOPROStoL 50 MCG TAB PO STA (05:15)
--- NOTE | 2023-04-15 09:25 | Obstetrical Progress Note ---
Date of Service April 15, 2023 Assessment & Plan Admission and Anticipated Discharge Date Admission Date: April 14, 2023 Subjective Patient is seen and examined Reviewed her records and confirmed history with her G1PO at 41 wks GBS neg H/O LEEP H/O herpes labialis no h/o genital herpes IOL since yesterday s/p 1 Cervidil and PO cytotec SROM at 08:02 Regular contractions since then, she appears to be uncomfortable VE: 1/ 50%/ -3, posterior, clear fluid leaking Large abdomen, bed side US done, vertex, EFW 4300+ gr, limited measurements due to SROM and having contractions Understands the limitation of US 10-15% error rate Discussed risks of LGA, Shoulder dystocia in details Discussed ACOG recommendation of CSection if EFW over 5000 gr She understands all and wants to trial of labor for vaginal All questions were answered. Results & Data Vital Signs (Past 12 Hours) Vital Signs Temp Pulse Resp BP 04/15/23 08:05 18 04/15/23 08:05 36.7 C 18 04/15/23 06:59 72 127/71 04/15/23 02:00 18 04/15/23 02:00 36.8 C 18 04/15/23 01:59 73 122/78 04/14/23 23:15 36.7 C 18 04/14/23 23:15 103 H 131/91
[2023-04-15] MEDS ORDERED: OXYTOCIN 30 UNITS/NSS 30 UNITS/500 ML BAG IV PRN (09:31)
[2023-04-15] MEDS: BUTORPHANOL TARTRATE 1 MG/ML VIAL IV PRN (10:36)
[2023-04-15] MEDS: LACTATED RINGER'S 1,000 ML IV PRN ×3 (11:15→20:04)
[2023-04-15] MEDS ORDERED: fentaNYL citrate PF 100 MCG/2 ML VIAL ONE ×2 (11:40→23:24)
[2023-04-15] MEDS ORDERED: ePHEDrine sulfate 50 MG/ML AMP ONE (11:40)
[2023-04-15] MEDS ORDERED: fentANYL 2 MCG/ML BUPIVacaine 0.125%-NSS 100ML BAG ONE (11:41)
[2023-04-15] MEDS ORDERED: BUPIVACAINE 0.25% PF 30 ML VIAL ONE (11:41)
[2023-04-15] MEDS ORDERED: LIDOCAINE 2%/EPINEPHRINE 1:200,000 20 ML PF ONE ×2 (11:41→23:24)
[2023-04-15] MEDS ORDERED: SODIUM CHLORIDE 0.9% PF INJ 10 ML VIAL ONE (11:41)
[2023-04-15] MEDS ORDERED: LIDOCAINE 2% MPF LOCAL 5 ML VIAL EPI PRN (11:44)
[2023-04-15] MEDS ORDERED: NALOXONE HCL 0.4 MG/1 ML VIAL/CARP IV PRN ×2 (11:44→23:39)
[2023-04-15] MEDS ORDERED: fentaNYL citrate PF 100 MCG/2 ML VIAL EPI STA (11:44)
[2023-04-15] MEDS ORDERED: SODIUM CHLORIDE 0.9% PF INJ 10 ML VIAL EPI PRN (11:44)
[2023-04-15] MEDS ORDERED: BUPIVACAINE 0.25% PF 30 ML VIAL EPI STA (11:44)
[2023-04-15] MEDS ORDERED: NALBUPHINE HCL 5 MG in SYRINGE 0 ML IV PRN ×2 (11:44→23:39)
[2023-04-15] MEDS ORDERED: fentANYL 2 MCG/ML BUPIVacaine 0.125%-NSS 100ML BAG EPI PRN (11:44)
[2023-04-15] MEDS ORDERED: LIDOCAINE 2%/EPINEPHRINE 1:200,000 20 ML PF EPI STA (11:44)
[2023-04-15] MEDS ORDERED: diphenhydrAMINE 50 MG/ML VIAL IV PRN ×2 (11:44→23:39)
[2023-04-15] MEDS ORDERED: SODIUM CHLORIDE 0.9% PF INJ 10 ML VIAL EPI STA (11:44)
[2023-04-15] MEDS ORDERED: fentaNYL citrate PF 100 MCG/2 ML VIAL EPI PRN (11:44)
[2023-04-15] MEDS ORDERED: ROPIVACAINE 0.5% PF 5 MG/ML 20 ML VIAL EPI PRN (11:44)
[2023-04-15] MEDS ORDERED: ONDANSETRON INJ 2 MG/ML 2 ML VIAL IV PRN ×2 (11:44→23:39)
[2023-04-15] MEDS ORDERED: ePHEDrine sulfate 50 MG/ML AMP IV PRN ×2 (11:44→23:39)
[2023-04-15] MEDS ORDERED: NALOXONE HCL 1 MG in SODIUM CHLORIDE 0.9% 1,000 ML IV PRN ×2 (11:44→23:39)
[2023-04-15] MEDS ORDERED: BUPIVACAINE 0.25% PF 30 ML VIAL EPI PRN (11:44)
--- NOTE | 2023-04-15 11:44 | Anesthesiology Consultation ---
Date of Service April 15, 2023 Assessment & Plan ASA ASA2 Proposed Anesthesia Anesthesia Type: Labor Epidural Risk / Benefits Reviewed With: PT / POA / Parent / Guardian, Accepts Plan and Informed Consent Obtained History Height/Weight Height: 5 ft 5 in Weight: 108.409 kg Allergies Allergy/AdvReac Type Severity Reaction Status Date / Time docosanol [From Abreva] Allergy Severe Swelling Verified 04/14/23 07:52 of Lip/Tongue/Throat Medications Home Medications Medication Instructions Recorded Confirmed Last Taken ferrous sulfate 325 mg (65 mg 325 mg PO DAILY 04/14/23 04/14/23 04/13/23 iron) tablet (iron) vits no.124-ferrous fum 1 tab PO DAILY 04/14/23 04/14/23 04/13/23 27 mg iron-folic acid 800 mcg tablet ( Vitamin) Active Medications Generic Name Dose Route Start Last Admin Trade Name Freq PRN Reason Stop Dose Admin Butorphanol Tartrate 1 mg 04/14/23 17:02 04/15/23 10:36 Butorphanol Tartrate 1 Mg/Ml Vial IV 05/14/23 17:01 1 mg Q2HWA PRN Administration Pain Lactated Ringer's 1,000 mls @ 125 mls/hr 04/14/23 08:44 04/15/23 11:15 Lr IV 04/16/23 08:43 999 mls/hr .Q8H PRN Administration L&D Protocol Protocol Past Medical History Medical History Anemia Herpes labialis Mouth herpes No known health problems Exercise / Class Metabolic Activity II 4-5 Yardwork/Stairs/Walk up hill Past Family History Family History Other No known health problems Past Surgical History Surgical History H/O LEEP No history of previous surgery Past Anesthesia History No Hx of Anesthesia Complications and No Family Hx of Anesthesia Complications History of PONV No Hx of PONV and No Hx of Motion Sickness Social History Smoking Status: Never smoker Hx Alcohol Use: No Hx Substance Use: No Review of Systems denies fever/cough/ colds/ chest pain/ SOB/ GT denies GT Physical Exam Vital Signs Last Vital Signs Temp 36.7 C 04/15/23 10:20 Pulse 74 04/15/23 11:21 Resp 20 04/15/23 10:20 BP 117/72 04/15/23 10:18 Pulse Ox 96 04/15/23 11:21 ENMT Mouth: no TMJ abnormality and no dentition abnormality Thyromental Distance: > or= 3.5 Finger Breadths Mallampati Class: II Neck neck extension not limited Respiratory normal respiratory effort; no respiratory distress Auscultation: lungs clear to auscultation bilaterally Cardiovascular Rate/Rhythm: regular rate and regular rhythm Neurologic moves all extremities Psychiatric Orientation: alert and oriented x 3 Testing Laboratory Results 04/14/23 09:14 Blood Type A Positive 04/14/23 09:14 Antibody Screen NEGATIVE 04/14/23 09:14
--- NOTE | 2023-04-15 15:12 | Obstetrical Progress Note ---
Date of Service April 15, 2023 Assessment & Plan Admission and Anticipated Discharge Date Admission Date: April 14, 2023 Subjective Patient has received epidural for pain Comfortable now FHR categ I VE; 5/ 70%/ -1 Ctxs q 3-5 min, Oxytocin is at 8 miu/ min Continue to monitor closely Results & Data Vital Signs (Past 12 Hours) Vital Signs Temp Pulse Resp BP Pulse Ox 04/15/23 15:07 65 100 04/15/23 15:02 100 04/15/23 15:02 66 04/15/23 15:02 82 92 04/15/23 14:59 68 133/74 04/15/23 14:57 70 98 04/15/23 14:52 70 97 04/15/23 14:47 70 100 04/15/23 14:44 66 130/73 04/15/23 14:42 68 97 04/15/23 14:37 69 99 04/15/23 14:32 68 99 04/15/23 14:30 16 04/15/23 14:30 36.5 C 16 04/15/23 14:29 69 129/80 04/15/23 14:27 65 97 04/15/23 14:22 69 97 04/15/23 14:17 68 99 04/15/23 14:15 67 128/69 04/15/23 14:12 68 100 04/15/23 14:07 68 100 04/15/23 14:02 80 98 04/15/23 13:59 88 125/62 04/15/23 13:57 79 100 04/15/23 13:52 81 98 04/15/23 13:47 83 100 04/15/23 13:45 73 116/60 04/15/23 13:42 74 99 04/15/23 13:37 76 99 04/15/23 13:32 76 98 04/15/23 13:29 77 111/61 04/15/23 13:27 75 100 04/15/23 13:22 82 98 04/15/23 13:17 80 98 04/15/23 13:14 80 116/63 04/15/23 13:12 77 95 04/15/23 13:10 16 04/15/23 13:10 36.6 C 16 04/15/23 13:07 82 99 04/15/23 13:03 81 94 04/15/23 13:02 80 97 04/15/23 12:59 81 116/65 04/15/23 12:57 80 98 04/15/23 12:52 87 97 04/15/23 12:47 86 96 04/15/23 12:45 94 H 131/67 04/15/23 12:42 88 98 04/15/23 12:37 84 98 04/15/23 12:36 82 93 04/15/23 12:32 89 100 04/15/23 12:29 84 131/76 04/15/23 12:27 80 98 04/15/23 12:24 82 134/67 04/15/23 12:22 83 100 04/15/23 12:18 80 134/69 04/15/23 12:17 81 100 04/15/23 12:15 75 126/92 04/15/23 12:12 70 98 04/15/23 12:07 167 H 97 04/15/23 11:21 74 96 04/15/23 11:18 70 94 04/15/23 11:16 63 97 04/15/23 11:15 18 04/15/23 11:15 36.6 C 18 04/15/23 11:12 72 94 04/15/23 11:11 66 95 04/15/23 11:06 69 93 04/15/23 11:05 70 93 04/15/23 11:01 70 93 04/15/23 10:58 72 94 04/15/23 10:56 75 94 04/15/23 10:51 74 91 04/15/23 10:49 73 92 04/15/23 10:46 69 91 04/15/23 10:43 74 93 04/15/23 10:41 71 98 04/15/23 10:37 73 94 04/15/23 10:36 78 96 04/15/23 10:20 20 04/15/23 10:20 36.7 C 20 04/15/23 10:18 81 117/72 04/15/23 08:05 18 04/15/23 08:05 36.7 C 18 04/15/23 06:59 36.7 C 72 16 127/71
--- NOTE | 2023-04-15 18:35 | Obstetrical Progress Note ---
Date of Service April 15, 2023 Assessment & Plan Admission and Anticipated Discharge Date Admission Date: April 14, 2023 Subjective Patient is reevaluated. She has been comfortable and slept FHR had bee categ I started to have mild early decels with contractions with good variability and accels in between. VE; 10/ head at +2 Start pushing Continue to monitor closely. Results & Data Vital Signs (Past 12 Hours) Vital Signs Temp Pulse Resp BP Pulse Ox 04/15/23 18:31 91 04/15/23 18:31 86 04/15/23 18:31 87 136/82 04/15/23 18:27 84 100 04/15/23 18:25 105 H 93 04/15/23 18:22 86 100 04/15/23 18:17 74 100 04/15/23 18:15 76 123/64 04/15/23 18:12 84 100 04/15/23 18:07 79 100 04/15/23 18:02 76 100 04/15/23 17:59 78 136/77 04/15/23 17:57 77 100 04/15/23 17:52 73 98 04/15/23 17:47 76 100 04/15/23 17:44 73 134/79 04/15/23 17:42 88 99 04/15/23 17:37 74 96 04/15/23 17:32 82 98 04/15/23 17:29 80 135/85 04/15/23 17:27 70 100 04/15/23 17:25 77 93 04/15/23 17:22 76 100 04/15/23 17:17 73 100 04/15/23 17:15 74 135/71 04/15/23 17:12 74 100 04/15/23 17:07 75 100 04/15/23 17:02 76 100 04/15/23 16:59 80 127/74 04/15/23 16:57 78 100 04/15/23 16:52 71 99 04/15/23 16:47 36.9 C 72 16 99 04/15/23 16:44 77 138/80 04/15/23 16:42 77 98 04/15/23 16:37 99 04/15/23 16:37 84 04/15/23 16:37 80 90 04/15/23 16:32 69 98 04/15/23 16:29 67 128/73 04/15/23 16:27 71 98 04/15/23 16:22 69 98 04/15/23 16:21 78 94 04/15/23 16:17 73 100 04/15/23 16:14 75 136/73 04/15/23 16:12 66 100 04/15/23 16:08 71 93 04/15/23 16:07 74 96 04/15/23 16:05 18 04/15/23 16:05 36.5 C 18 04/15/23 16:02 73 100 04/15/23 16:00 69 129/73 04/15/23 15:57 71 100 04/15/23 15:52 66 100 04/15/23 15:47 71 97 04/15/23 15:45 69 127/63 04/15/23 15:42 73 100 04/15/23 15:37 71 100 04/15/23 15:32 74 99 04/15/23 15:29 64 127/68 04/15/23 15:27 72 99 04/15/23 15:22 72 100 04/15/23 15:21 74 94 04/15/23 15:17 68 100 04/15/23 15:14 64 120/73 04/15/23 15:12 71 100 04/15/23 15:07 65 100 04/15/23 15:02 100 04/15/23 15:02 66 04/15/23 15:02 82 92 04/15/23 14:59 68 133/74 04/15/23 14:57 70 98 04/15/23 14:52 70 97 04/15/23 14:47 70 100 04/15/23 14:44 66 130/73 04/15/23 14:42 68 97 04/15/23 14:37 69 99 04/15/23 14:32 68 99 04/15/23 14:30 16 04/15/23 14:30 36.5 C 16 04/15/23 14:29 69 129/80 04/15/23 14:27 65 97 04/15/23 14:22 69 97 04/15/23 14:17 68 99 04/15/23 14:15 67 128/69 04/15/23 14:12 68 100 04/15/23 14:07 68 100 04/15/23 14:02 80 98 04/15/23 13:59 88 125/62 04/15/23 13:57 79 100 04/15/23 13:52 81 98 04/15/23 13:47 83 100 04/15/23 13:45 73 116/60 04/15/23 13:42 74 99 04/15/23 13:37 76 99 04/15/23 13:32 76 98 04/15/23 13:29 77 111/61 04/15/23 13:27 75 100 04/15/23 13:22 82 98 04/15/23 13:17 80 98 04/15/23 13:14 80 116/63 04/15/23 13:12 77 95 04/15/23 13:10 16 04/15/23 13:10 36.6 C 16 04/15/23 13:07 82 99 04/15/23 13:03 81 94 04/15/23 13:02 80 97 04/15/23 12:59 81 116/65 04/15/23 12:57 80 98 04/15/23 12:52 87 97 04/15/23 12:47 86 96 04/15/23 12:45 94 H 131/67 04/15/23 12:42 88 98 04/15/23 12:37 84 98 04/15/23 12:36 82 93 04/15/23 12:32 89 100 04/15/23 12:29 84 131/76 04/15/23 12:27 80 98 04/15/23 12:24 82 134/67 04/15/23 12:22 83 100 04/15/23 12:18 80 134/69 04/15/23 12:17 81 100 04/15/23 12:15 75 126/92 04/15/23 12:12 70 98 04/15/23 12:07 167 H 97 04/15/23 11:21 74 96 04/15/23 11:18 70 94 04/15/23 11:16 63 97 04/15/23 11:15 18 04/15/23 11:15 36.6 C 18 04/15/23 11:12 72 94 04/15/23 11:11 66 95 04/15/23 11:06 69 93 04/15/23 11:05 70 93 04/15/23 11:01 70 93 04/15/23 10:58 72 94 04/15/23 10:56 75 94 04/15/23 10:51 74 91 04/15/23 10:49 73 92 04/15/23 10:46 69 91 04/15/23 10:43 74 93 04/15/23 10:41 71 98 04/15/23 10:37 73 94 04/15/23 10:36 78 96 04/15/23 10:20 20 04/15/23 10:20 36.7 C 20 04/15/23 10:18 81 117/72 04/15/23 08:05 18 04/15/23 08:05 36.7 C 18 04/15/23 06:59 36.7 C 72 16 127/71
--- NOTE | 2023-04-15 20:05 | Obstetrical Progress Note ---
Date of Service April 15, 2023 Assessment & Plan Admission and Anticipated Discharge Date Admission Date: April 14, 2023 Subjective She has been pushing for about 1.5 hours No significant change in station FHR categ I Offered her labor down for few minutes Continue to monitor Results & Data Vital Signs (Past 12 Hours) Vital Signs Temp Pulse Resp BP Pulse Ox 04/15/23 20:03 97 H 92 04/15/23 20:02 97 H 96 04/15/23 19:59 90 131/86 04/15/23 19:57 91 04/15/23 19:57 108 H 04/15/23 19:57 95 H 92 04/15/23 19:52 93 H 97 04/15/23 19:51 95 H 93 04/15/23 19:47 99 H 97 04/15/23 19:46 90 04/15/23 19:46 95 H 04/15/23 19:46 92 H 139/89 04/15/23 19:42 94 H 97 04/15/23 19:41 94 H 87 L 04/15/23 19:37 97 H 96 04/15/23 19:34 92 H 92 04/15/23 19:32 100 H 97 04/15/23 19:29 101 H 93 04/15/23 19:27 103 H 96 04/15/23 19:22 121 H 97 04/15/23 19:17 103 H 78 L 04/15/23 19:15 90 87 L 04/15/23 19:14 85 143/75 H 04/15/23 19:12 91 H 99 04/15/23 19:07 94 H 99 04/15/23 19:02 94 H 100 04/15/23 18:59 96 H 141/71 H 04/15/23 18:57 91 H 98 04/15/23 18:54 84 87 L 04/15/23 18:52 89 99 04/15/23 18:49 97 H 92 04/15/23 18:47 93 H 100 04/15/23 18:43 95 H 91 04/15/23 18:42 86 100 04/15/23 18:37 100 04/15/23 18:37 102 H 04/15/23 18:37 89 84 L 04/15/23 18:32 88 100 04/15/23 18:31 91 04/15/23 18:31 86 04/15/23 18:31 87 136/82 04/15/23 18:27 84 100 04/15/23 18:25 105 H 93 04/15/23 18:22 86 100 04/15/23 18:17 74 100 04/15/23 18:15 76 123/64 04/15/23 18:12 84 100 04/15/23 18:09 18 04/15/23 18:09 36.5 C 18 04/15/23 18:07 79 100 04/15/23 18:02 76 100 04/15/23 17:59 78 136/77 04/15/23 17:57 77 100 04/15/23 17:52 73 98 04/15/23 17:47 76 100 04/15/23 17:44 73 134/79 04/15/23 17:42 88 99 04/15/23 17:37 74 96 04/15/23 17:32 82 98 04/15/23 17:29 80 135/85 04/15/23 17:27 70 100 04/15/23 17:25 77 93 04/15/23 17:22 76 100 04/15/23 17:17 73 100 04/15/23 17:15 74 135/71 04/15/23 17:12 74 100 04/15/23 17:07 75 100 04/15/23 17:02 76 100 04/15/23 16:59 80 127/74 04/15/23 16:57 78 100 04/15/23 16:52 71 99 04/15/23 16:47 36.9 C 72 16 99 04/15/23 16:44 77 138/80 04/15/23 16:42 77 98 04/15/23 16:37 99 04/15/23 16:37 84 04/15/23 16:37 80 90 04/15/23 16:32 69 98 04/15/23 16:29 67 128/73 04/15/23 16:27 71 98 04/15/23 16:22 69 98 04/15/23 16:21 78 94 04/15/23 16:17 73 100 04/15/23 16:14 75 136/73 04/15/23 16:12 66 100 04/15/23 16:08 71 93 04/15/23 16:07 74 96 04/15/23 16:05 18 04/15/23 16:05 36.5 C 18 04/15/23 16:02 73 100 04/15/23 16:00 69 129/73 04/15/23 15:57 71 100 04/15/23 15:52 66 100 04/15/23 15:47 71 97 04/15/23 15:45 69 127/63 04/15/23 15:42 73 100 04/15/23 15:37 71 100 04/15/23 15:32 74 99 04/15/23 15:29 64 127/68 04/15/23 15:27 72 99 04/15/23 15:22 72 100 04/15/23 15:21 74 94 04/15/23 15:17 68 100 04/15/23 15:14 64 120/73 04/15/23 15:12 71 100 04/15/23 15:07 65 100 04/15/23 15:02 100 04/15/23 15:02 66 04/15/23 15:02 82 92 04/15/23 14:59 68 133/74 04/15/23 14:57 70 98 04/15/23 14:52 70 97 04/15/23 14:47 70 100 04/15/23 14:44 66 130/73 04/15/23 14:42 68 97 04/15/23 14:37 69 99 04/15/23 14:32 68 99 04/15/23 14:30 16 04/15/23 14:30 36.5 C 16 04/15/23 14:29 69 129/80 04/15/23 14:27 65 97 04/15/23 14:22 69 97 04/15/23 14:17 68 99 04/15/23 14:15 67 128/69 04/15/23 14:12 68 100 04/15/23 14:07 68 100 04/15/23 14:02 80 98 04/15/23 13:59 88 125/62 04/15/23 13:57 79 100 04/15/23 13:52 81 98 04/15/23 13:47 83 100 04/15/23 13:45 73 116/60 04/15/23 13:42 74 99 04/15/23 13:37 76 99 04/15/23 13:32 76 98 04/15/23 13:29 77 111/61 04/15/23 13:27 75 100 04/15/23 13:22 82 98 04/15/23 13:17 80 98 04/15/23 13:14 80 116/63 04/15/23 13:12 77 95 04/15/23 13:10 16 04/15/23 13:10 36.6 C 16 04/15/23 13:07 82 99 04/15/23 13:03 81 94 04/15/23 13:02 80 97 04/15/23 12:59 81 116/65 04/15/23 12:57 80 98 04/15/23 12:52 87 97 04/15/23 12:47 86 96 04/15/23 12:45 94 H 131/67 04/15/23 12:42 88 98 04/15/23 12:37 84 98 04/15/23 12:36 82 93 04/15/23 12:32 89 100 04/15/23 12:29 84 131/76 04/15/23 12:27 80 98 04/15/23 12:24 82 134/67 04/15/23 12:22 83 100 04/15/23 12:18 80 134/69 04/15/23 12:17 81 100 04/15/23 12:15 75 126/92 04/15/23 12:12 70 98 04/15/23 12:07 167 H 97 04/15/23 11:21 74 96 04/15/23 11:18 70 94 04/15/23 11:16 63 97 04/15/23 11:15 18 04/15/23 11:15 36.6 C 18 04/15/23 11:12 72 94 04/15/23 11:11 66 95 04/15/23 11:06 69 93 04/15/23 11:05 70 93 04/15/23 11:01 70 93 04/15/23 10:58 72 94 04/15/23 10:56 75 94 04/15/23 10:51 74 91 04/15/23 10:49 73 92 04/15/23 10:46 69 91 04/15/23 10:43 74 93 04/15/23 10:41 71 98 04/15/23 10:37 73 94 04/15/23 10:36 78 96 0126/24 10:20 20 04/15/23 10:20 36.7 C 20 04/15/23 10:18 81 117/72 04/15/23 08:05 18 04/15/23 08:05 36.7 C 18
--- NOTE | 2023-04-15 21:42 | Obstetrical Progress Note ---
Date of Service April 15, 2023 Assessment & Plan Admission and Anticipated Discharge Date Admission Date: April 14, 2023 Subjective Patient rested for about an hour and started to push again ctxs q 3 min FHR categ I Head station about the same +2 to 3, caput visible with pushing upon opening labia Continue to monitor closely Results & Data Vital Signs (Past 12 Hours) Vital Signs Temp Pulse Resp BP Pulse Ox 04/15/23 21:37 87 100 04/15/23 21:35 91 H 90 04/15/23 21:32 86 95 04/15/23 21:27 92 H 86 L 04/15/23 21:22 102 H 88 L 04/15/23 21:21 95 H 89 L 04/15/23 21:17 88 98 04/15/23 21:15 18 04/15/23 21:15 18 04/15/23 21:14 93 H 116/77 04/15/23 21:12 100 04/15/23 21:12 101 H 04/15/23 21:12 93 H 88 L 04/15/23 21:07 93 H 97 04/15/23 21:03 36.6 C 04/15/23 21:02 95 H 100 04/15/23 21:00 18 04/15/23 21:00 18 04/15/23 20:59 87 122/84 04/15/23 20:57 91 H 97 04/15/23 20:52 93 H 99 04/15/23 20:47 88 100 04/15/23 20:44 91 H 123/98 04/15/23 20:42 93 H 100 04/15/23 20:41 105 H 88 L 04/15/23 20:37 97 H 97 04/15/23 20:32 106 H 100 04/15/23 20:30 18 04/15/23 20:30 18 04/15/23 20:27 112 H 97 04/15/23 20:22 88 100 04/15/23 20:17 87 100 04/15/23 20:14 94 H 118/85 04/15/23 20:12 95 H 94 04/15/23 20:07 93 H 89 L 04/15/23 20:03 97 H 92 04/15/23 20:02 97 H 96 04/15/23 20:00 16 04/15/23 20:00 16 04/15/23 19:59 90 131/86 04/15/23 19:57 91 04/15/23 19:57 108 H 04/15/23 19:57 95 H 92 04/15/23 19:52 93 H 97 04/15/23 19:51 95 H 93 04/15/23 19:47 99 H 97 04/15/23 19:46 90 04/15/23 19:46 95 H 04/15/23 19:46 92 H 139/89 04/15/23 19:42 94 H 97 04/15/23 19:41 94 H 87 L 04/15/23 19:37 97 H 96 04/15/23 19:34 92 H 92 04/15/23 19:32 100 H 97 04/15/23 19:30 18 04/15/23 19:30 18 04/15/23 19:29 101 H 93 04/15/23 19:27 103 H 96 04/15/23 19:22 121 H 97 04/15/23 19:17 103 H 78 L 04/15/23 19:15 36.6 C 90 18 87 L 04/15/23 19:14 85 143/75 H 04/15/23 19:12 91 H 99 04/15/23 19:07 94 H 99 04/15/23 19:02 94 H 100 04/15/23 18:59 96 H 141/71 H 04/15/23 18:57 91 H 98 04/15/23 18:54 84 87 L 04/15/23 18:52 89 99 04/15/23 18:49 97 H 92 04/15/23 18:47 93 H 100 04/15/23 18:43 95 H 91 04/15/23 18:42 86 100 04/15/23 18:37 100 04/15/23 18:37 102 H 04/15/23 18:37 89 84 L 04/15/23 18:32 88 100 04/15/23 18:31 91 04/15/23 18:31 86 04/15/23 18:31 87 136/82 04/15/23 18:27 84 100 04/15/23 18:25 105 H 93 04/15/23 18:22 86 100 04/15/23 18:17 74 100 04/15/23 18:15 76 123/64 04/15/23 18:12 84 100 04/15/23 18:09 18 04/15/23 18:09 36.5 C 18 04/15/23 18:07 79 100 04/15/23 18:02 76 100 04/15/23 17:59 78 136/77 04/15/23 17:57 77 100 04/15/23 17:52 73 98 04/15/23 17:47 76 100 04/15/23 17:44 73 134/79 04/15/23 17:42 88 99 04/15/23 17:37 74 96 04/15/23 17:32 82 98 04/15/23 17:29 80 135/85 04/15/23 17:27 70 100 04/15/23 17:25 77 93 04/15/23 17:22 76 100 04/15/23 17:17 73 100 04/15/23 17:15 74 135/71 04/15/23 17:12 74 100 04/15/23 17:07 75 100 04/15/23 17:02 76 100 04/15/23 16:59 80 127/74 04/15/23 16:57 78 100 04/15/23 16:52 71 99 04/15/23 16:47 36.9 C 72 16 99 04/15/23 16:44 77 138/80 04/15/23 16:42 77 98 04/15/23 16:37 99 04/15/23 16:37 84 04/15/23 16:37 80 90 04/15/23 16:32 69 98 04/15/23 16:29 67 128/73 04/15/23 16:27 71 98 04/15/23 16:22 69 98 04/15/23 16:21 78 94 04/15/23 16:17 73 100 04/15/23 16:14 75 136/73 04/15/23 16:12 66 100 04/15/23 16:08 71 93 04/15/23 16:07 74 96 04/15/23 16:05 18 04/15/23 16:05 36.5 C 18 04/15/23 16:02 73 100 04/15/23 16:00 69 129/73 04/15/23 15:57 71 100 04/15/23 15:52 66 100 04/15/23 15:47 71 97 04/15/23 15:45 69 127/63 04/15/23 15:42 73 100 04/15/23 15:37 71 100 04/15/23 15:32 74 99 04/15/23 15:29 64 127/68 04/15/23 15:27 72 99 04/15/23 15:22 72 100 04/15/23 15:21 74 94 04/15/23 15:17 68 100 04/15/23 15:14 64 120/73 04/15/23 15:12 71 100 04/15/23 15:07 65 100 04/15/23 15:02 100 04/15/23 15:02 66 04/15/23 15:02 82 92 04/15/23 14:59 68 133/74 04/15/23 14:57 70 98 04/15/23 14:52 70 97 04/15/23 14:47 70 100 04/15/23 14:44 66 130/73 04/15/23 14:42 68 97 04/15/23 14:37 69 99 04/15/23 14:32 68 99 04/15/23 14:30 16 04/15/23 14:30 36.5 C 16 04/15/23 14:29 69 129/80 04/15/23 14:27 65 97 04/15/23 14:22 69 97 04/15/23 14:17 68 99 04/15/23 14:15 67 128/69 04/15/23 14:12 68 100 04/15/23 14:07 68 100 04/15/23 14:02 80 98 04/15/23 13:59 88 125/62 04/15/23 13:57 79 100 04/15/23 13:52 81 98 04/15/23 13:47 83 100 04/15/23 13:45 73 116/60 04/15/23 13:42 74 99 04/15/23 13:37 76 99 04/15/23 13:32 76 98 04/15/23 13:29 77 111/61 04/15/23 13:27 75 100 04/15/23 13:22 82 98 04/15/23 13:17 80 98 04/15/23 13:14 80 116/63 04/15/23 13:12 77 95 04/15/23 13:10 16 04/15/23 13:10 36.6 C 16 04/15/23 13:07 82 99 04/15/23 13:03 81 94 04/15/23 13:02 80 97 04/15/23 12:59 81 116/65 04/15/23 12:57 80 98 04/15/23 12:52 87 97 04/15/23 12:47 86 96 04/15/23 12:45 94 H 131/67 04/15/23 12:42 88 98 04/15/23 12:37 84 98 04/15/23 12:36 82 93 04/15/23 12:32 89 100 04/15/23 12:29 84 131/76 04/15/23 12:27 80 98 04/15/23 12:24 82 134/67 04/15/23 12:22 83 100 04/15/23 12:18 80 134/69 04/15/23 12:17 81 100 04/15/23 12:15 75 126/92 04/15/23 12:12 70 98 04/15/23 12:07 167 H 97 04/15/23 11:21 74 96 04/15/23 11:18 70 94 04/15/23 11:16 63 97 04/15/23 11:15 18 04/15/23 11:15 36.6 C 18 04/15/23 11:12 72 94 04/15/23 11:11 66 95 04/15/23 11:06 69 93 04/15/23 11:05 70 93 04/15/23 11:01 70 93 04/15/23 10:58 72 94 04/15/23 10:56 75 94 04/15/23 10:51 74 91 04/15/23 10:49 73 92 04/15/23 10:46 69 91 04/15/23 10:43 74 93 04/15/23 10:41 71 98 04/15/23 10:37 73 94 04/15/23 10:36 78 96 04/15/23 10:20 20 04/15/23 10:20 36.7 C 20 04/15/23 10:18 81 117/72
[2023-04-15] MEDS ORDERED: LACTATED RINGER'S 1,000 ML IV SCH (23:00)
--- NOTE | 2023-04-15 23:03 | Obstetrical Progress Note ---
Date of Service April 15, 2023 Assessment & Plan Admission and Anticipated Discharge Date Admission Date: April 14, 2023 Subjective Patient has pushed for total of over 3 hours, unable to bring head down. FHR had been categ I with short period of tachycardia with early decels and those recovered quickly. Discussed to continue pushing vs Primary Csection. She decided to Csection. Patient understands C section is a major surgery, with risks including but not limited to bleeding , infection, injury to surrounding organs like bowels, bladder, ureters, adhesions, scarring, wound infection, blood cloths in legs/ lungs, longer recovery. All questions were answered. She signed an informed consent. Plan for IV AB, Cefazolin and Azithromycin, wash vagina with Betadine and proceed with Csection. All questions were answered. Results & Data Vital Signs (Past 12 Hours) Vital Signs Temp Pulse Resp BP Pulse Ox 04/15/23 22:58 85 99 04/15/23 22:53 79 98 04/15/23 22:48 82 97 04/15/23 22:44 86 132/75 04/15/23 22:43 83 98 04/15/23 22:38 97 04/15/23 22:38 84 04/15/23 22:38 94 H 86 L 04/15/23 22:33 36.5 C 90 95 04/15/23 22:30 93 H 90 04/15/23 22:29 90 134/75 04/15/23 22:28 92 H 100 04/15/23 22:24 87 74 L 04/15/23 22:23 83 97 04/15/23 22:19 94 H 84 L 04/15/23 22:17 85 99 04/15/23 22:15 85 132/68 04/15/23 22:12 97 04/15/23 22:12 82 04/15/23 22:12 96 H 83 L 04/15/23 22:07 86 98 04/15/23 22:04 90 85 L 04/15/23 22:02 90 99 04/15/23 22:00 83 18 121/67 04/15/23 21:57 82 99 04/15/23 21:52 88 100 04/15/23 21:50 91 H 87 L 04/15/23 21:47 86 97 04/15/23 21:45 18 04/15/23 21:45 18 04/15/23 21:44 77 120/65 04/15/23 21:43 83 87 L 04/15/23 21:42 83 94 04/15/23 21:37 87 100 04/15/23 21:35 91 H 90 04/15/23 21:32 86 95 04/15/23 21:30 18 04/15/23 21:30 18 04/15/23 21:27 92 H 86 L 04/15/23 21:22 102 H 88 L 04/15/23 21:21 95 H 89 L 04/15/23 21:17 88 98 04/15/23 21:15 18 04/15/23 21:15 18 04/15/23 21:14 93 H 116/77 04/15/23 21:12 100 04/15/23 21:12 101 H 04/15/23 21:12 93 H 88 L 04/15/23 21:07 93 H 97 04/15/23 21:03 36.6 C 04/15/23 21:02 95 H 100 04/15/23 21:00 18 04/15/23 21:00 18 04/15/23 20:59 87 122/84 04/15/23 20:57 91 H 97 04/15/23 20:52 93 H 99 04/15/23 20:47 88 100 04/15/23 20:44 91 H 123/98 04/15/23 20:42 93 H 100 04/15/23 20:41 105 H 88 L 04/15/23 20:37 97 H 97 04/15/23 20:32 106 H 100 04/15/23 20:30 18 04/15/23 20:30 18 04/15/23 20:27 112 H 97 04/15/23 20:22 88 100 04/15/23 20:17 87 100 04/15/23 20:14 94 H 118/85 04/15/23 20:12 95 H 94 04/15/23 20:07 93 H 89 L 04/15/23 20:03 97 H 92 04/15/23 20:02 97 H 96 04/15/23 20:00 16 04/15/23 20:00 16 04/15/23 19:59 90 131/86 04/15/23 19:57 91 04/15/23 19:57 108 H 04/15/23 19:57 95 H 92 04/15/23 19:52 93 H 97 04/15/23 19:51 95 H 93 04/15/23 19:47 99 H 97 04/15/23 19:46 90 04/15/23 19:46 95 H 04/15/23 19:46 92 H 139/89 04/15/23 19:42 94 H 97 04/15/23 19:41 94 H 87 L 04/15/23 19:37 97 H 96 04/15/23 19:34 92 H 92 04/15/23 19:32 100 H 97 04/15/23 19:30 18 04/15/23 19:30 18 04/15/23 19:29 101 H 93 04/15/23 19:27 103 H 96 04/15/23 19:22 121 H 97 04/15/23 19:17 103 H 78 L 04/15/23 19:15 36.6 C 90 18 87 L 04/15/23 19:14 85 143/75 H 04/15/23 19:12 91 H 99 04/15/23 19:07 94 H 99 04/15/23 19:02 94 H 100 04/15/23 18:59 96 H 141/71 H 04/15/23 18:57 91 H 98 04/15/23 18:54 84 87 L 04/15/23 18:52 89 99 04/15/23 18:49 97 H 92 04/15/23 18:47 93 H 100 04/15/23 18:43 95 H 91 04/15/23 18:42 86 100 04/15/23 18:37 100 04/15/23 18:37 102 H 04/15/23 18:37 89 84 L 04/15/23 18:32 88 100 04/15/23 18:31 91 04/15/23 18:31 86 04/15/23 18:31 87 136/82 04/15/23 18:27 84 100 04/15/23 18:25 105 H 93 04/15/23 18:22 86 100 04/15/23 18:17 74 100 04/15/23 18:15 76 123/64 04/15/23 18:12 84 100 04/15/23 18:09 18 04/15/23 18:09 36.5 C 18 04/15/23 18:07 79 100 04/15/23 18:02 76 100 04/15/23 17:59 78 136/77 04/15/23 17:57 77 100 04/15/23 17:52 73 98 04/15/23 17:47 76 100 04/15/23 17:44 73 134/79 04/15/23 17:42 88 99 04/15/23 17:37 74 96 04/15/23 17:32 82 98 04/15/23 17:29 80 135/85 04/15/23 17:27 70 100 04/15/23 17:25 77 93 04/15/23 17:22 76 100 04/15/23 17:17 73 100 04/15/23 17:15 74 135/71 04/15/23 17:12 74 100 04/15/23 17:07 75 100 04/15/23 17:02 76 100 04/15/23 16:59 80 127/74 04/15/23 16:57 78 100 04/15/23 16:52 71 99 04/15/23 16:47 36.9 C 72 16 99 04/15/23 16:44 77 138/80 04/15/23 16:42 77 98 04/15/23 16:37 99 04/15/23 16:37 84 04/15/23 16:37 80 90 04/15/23 16:32 69 98 04/15/23 16:29 67 128/73 04/15/23 16:27 71 98 04/15/23 16:22 69 98 04/15/23 16:21 78 94 04/15/23 16:17 73 100 04/15/23 16:14 75 136/73 04/15/23 16:12 66 100 04/15/23 16:08 71 93 04/15/23 16:07 74 96 04/15/23 16:05 18 04/15/23 16:05 36.5 C 18 04/15/23 16:02 73 100 04/15/23 16:00 69 129/73 04/15/23 15:57 71 100 04/15/23 15:52 66 100 04/15/23 15:47 71 97 04/15/23 15:45 69 127/63 04/15/23 15:42 73 100 04/15/23 15:37 71 100 04/15/23 15:32 74 99 04/15/23 15:29 64 127/68 04/15/23 15:27 72 99 04/15/23 15:22 72 100 04/15/23 15:21 74 94 04/15/23 15:17 68 100 04/15/23 15:14 64 120/73 04/15/23 15:12 71 100 04/15/23 15:07 65 100 04/15/23 15:02 100 04/15/23 15:02 66 04/15/23 15:02 82 92 04/15/23 14:59 68 133/74 04/15/23 14:57 70 98 04/15/23 14:52 70 97 04/15/23 14:47 70 100 04/15/23 14:44 66 130/73 04/15/23 14:42 68 97 04/15/23 14:37 69 99 04/15/23 14:32 68 99 04/15/23 14:30 16 04/15/23 14:30 36.5 C 16 04/15/23 14:29 69 129/80 04/15/23 14:27 65 97 04/15/23 14:22 69 97 04/15/23 14:17 68 99 04/15/23 14:15 67 128/69 04/15/23 14:12 68 100 04/15/23 14:07 68 100 04/15/23 14:02 80 98 04/15/23 13:59 88 125/62 04/15/23 13:57 79 100 04/15/23 13:52 81 98 04/15/23 13:47 83 100 04/15/23 13:45 73 116/60 04/15/23 13:42 74 99 04/15/23 13:37 76 99 04/15/23 13:32 76 98 04/15/23 13:29 77 111/61 04/15/23 13:27 75 100 04/15/23 13:22 82 98 04/15/23 13:17 80 98 04/15/23 13:14 80 116/63 04/15/23 13:12 77 95 04/15/23 13:10 16 04/15/23 13:10 36.6 C 16 04/15/23 13:07 82 99 04/15/23 13:03 81 94 04/15/23 13:02 80 97 04/15/23 12:59 81 116/65 04/15/23 12:57 80 98 04/15/23 12:52 87 97 04/15/23 12:47 86 96 04/15/23 12:45 94 H 131/67 04/15/23 12:42 88 98 04/15/23 12:37 84 98 04/15/23 12:36 82 93 04/15/23 12:32 89 100 04/15/23 12:29 84 131/76 04/15/23 12:27 80 98 04/15/23 12:24 82 134/67 04/15/23 12:22 83 100 04/15/23 12:18 80 134/69 04/15/23 12:17 81 100 04/15/23 12:15 75 126/92 04/15/23 12:12 70 98 04/15/23 12:07 167 H 97 04/15/23 11:21 74 96 04/15/23 11:18 70 94 04/15/23 11:16 63 97 04/15/23 11:15 18 04/15/23 11:15 36.6 C 18 04/15/23 11:12 72 94 04/15/23 11:11 66 95 04/15/23 11:06 69 93 04/15/23 11:05 70 93
[2023-04-15] MEDS ORDERED: CITRIC ACID/SODIUM CITRATE 15 ML UDC PO SCH (23:15)
[2023-04-15] MEDS ORDERED: AZITHROMYCIN 500 MG in DEXTROSE 5% 250 ML IV ONE (23:15)
[2023-04-15] MEDS ORDERED: OXYTOCIN 10 UNITS/ML VIAL ONE (23:24)
[2023-04-15] MEDS ORDERED: PHENYLEPHRINE HCL 10 MG/ML VIAL ONE (23:24)
[2023-04-15] MEDS ORDERED: HYDROmorphone INJ 0.5 MG/0.5 ML SYR IV PRN (23:39)
[2023-04-15] MEDS ORDERED: NALOXONE HCL 0.08 MG in SYRINGE 1.8 ML IV PRN (23:39)
[2023-04-15] MEDS ORDERED: MoRPHine SULFATE 2 MG/ML CARP IV PRN (23:39)
[2023-04-15] MEDS ORDERED: MoRPHine SULFATE PF 1 MG/ML 10 ML AMP/VIAL EPI ONE (23:39)
[2023-04-15] MEDS ORDERED: LACTATED RINGER'S 500 ML IV PRN (23:39)
[2023-04-15] MEDS ORDERED: MoRPHine SULFATE PF 1 MG/ML 10 ML AMP/VIAL ONE (23:42)
[2023-04-15] MEDS ORDERED: DC INTRASPINAL MORPHINE SCH (23:45)
[2023-04-15] MEDS ORDERED: NO NARCOTICS OR SEDATIVES SCH (23:45)
[2023-04-15] MEDS ORDERED: SODIUM CHLORIDE 0.9% 1,000 ML IV SCH (23:45)
[2023-04-15] MEDS ORDERED: ONDANSETRON INJ 2 MG/ML 2 ML VIAL ONE (23:57)
[2023-04-16] MEDS ORDERED: METHYLERGONOVINE MALEATE 0.2 MG/ML AMP ONE (00:13)
[2023-04-16] MEDS ORDERED: MAGNESIUM HYDROXIDE SUSP 30 ML UDC PO PRN (01:01)
[2023-04-16] MEDS ORDERED: DIPHTHER/TETAN/PERTUS Vaccine (Tdap, Adol/Adult) 0.5mL IM ONE (01:01)
[2023-04-16] MEDS ORDERED: BENZOCAINE 20% SPRY 85 APPLN/85 GM CAN EXT PRN (01:01)
[2023-04-16] MEDS ORDERED: SENNA 8.6 MG TAB PO PRN (01:01)
[2023-04-16] MEDS ORDERED: HYDROCORTISONE ACETATE 25 MG SUPP PR PRN (01:01)
[2023-04-16] MEDS ORDERED: MEASLES, MUMPS & RUBELLA VIRUS VACCINE (MMR) VIAL SQ ONE (01:01)
--- NOTE | 2023-04-16 01:07 | Anesthesia Procedure Note ---
Date of Service April 16, 2023 Anesthesia Post Epidural Note Vital Signs Vital Signs: Temp Pulse Resp BP Pulse Ox 36.5 C 86 18 125/63 97 04/15/23 22:33 04/16/23 01:04 04/15/23 23:39 04/16/23 01:04 04/16/23 01:02 Pain Intensity Bilateral Abdomen: Pain Intensity: 0 Notes Mental Status: alert / awake / arousable and participated in evaluation Nausea / Vomiting: adequately controlled Pain: adequately controlled Airway Patency, RR, SpO2: stable & adequate BP & HR: stable & adequate Hydration State: stable & adequate Neuraxial Anesthesia: was administered and sensory block resolved Anesthetic Complications: no major complications apparent and Pt Satisfied with anesthetic care Epidural: Removed without complications and With tip intact
--- NOTE | 2023-04-16 01:07 | Anesthesiology Progress Note ---
Date of Service April 16, 2023 Anesthesia Post Procedure Vital Signs Vital Signs: Temp Pulse Resp BP Pulse Ox 04/16/23 01:04 86 125/63 04/16/23 01:02 90 97 04/15/23 23:39 18 04/15/23 23:39 18 04/15/23 23:38 90 96 04/15/23 23:33 95 H 97 04/15/23 23:30 95 H 18 90 04/15/23 23:29 83 110/68 04/15/23 23:28 85 96 04/15/23 23:23 81 97 04/15/23 23:19 84 90 04/15/23 23:18 82 93 04/15/23 23:14 83 131/72 04/15/23 23:13 85 95 04/15/23 23:08 82 97 04/15/23 23:03 90 96 04/15/23 23:00 18 04/15/23 23:00 18 04/15/23 22:58 85 99 04/15/23 22:53 79 98 04/15/23 22:48 82 97 04/15/23 22:44 86 132/75 04/15/23 22:43 83 98 04/15/23 22:40 18 04/15/23 22:40 18 04/15/23 22:38 97 04/15/23 22:38 84 04/15/23 22:38 94 H 86 L 04/15/23 22:33 36.5 C 90 95 04/15/23 22:30 93 H 18 90 04/15/23 22:29 90 134/75 04/15/23 22:28 92 H 100 04/15/23 22:24 87 74 L 04/15/23 22:23 83 97 04/15/23 22:19 94 H 84 L 04/15/23 22:17 85 99 04/15/23 22:15 85 18 132/68 04/15/23 22:12 97 04/15/23 22:12 82 04/15/23 22:12 96 H 83 L 04/15/23 22:07 86 98 04/15/23 22:04 90 85 L 04/15/23 22:02 90 99 04/15/23 22:00 83 18 121/67 04/15/23 21:57 82 99 04/15/23 21:52 88 100 04/15/23 21:50 91 H 87 L 04/15/23 21:47 86 97 04/15/23 21:45 18 04/15/23 21:45 18 04/15/23 21:44 77 120/65 04/15/23 21:43 83 87 L 04/15/23 21:42 83 94 04/15/23 21:37 87 100 04/15/23 21:35 91 H 90 04/15/23 21:32 86 95 04/15/23 21:30 18 04/15/23 21:30 18 04/15/23 21:27 92 H 86 L 04/15/23 21:22 102 H 88 L 04/15/23 21:21 95 H 89 L 04/15/23 21:17 88 98 04/15/23 21:15 18 04/15/23 21:15 18 04/15/23 21:14 93 H 116/77 04/15/23 21:12 100 04/15/23 21:12 101 H 04/15/23 21:12 93 H 88 L 04/15/23 21:07 93 H 97 04/15/23 21:03 36.6 C 04/15/23 21:02 95 H 100 04/15/23 21:00 18 04/15/23 21:00 18 04/15/23 20:59 87 122/84 04/15/23 20:57 91 H 97 04/15/23 20:52 93 H 99 04/15/23 20:47 88 100 04/15/23 20:44 91 H 123/98 04/15/23 20:42 93 H 100 04/15/23 20:41 105 H 88 L 04/15/23 20:37 97 H 97 04/15/23 20:32 106 H 100 04/15/23 20:30 18 04/15/23 20:30 18 04/15/23 20:27 112 H 97 04/15/23 20:22 88 100 04/15/23 20:17 87 100 04/15/23 20:14 94 H 118/85 04/15/23 20:12 95 H 94 04/15/23 20:07 93 H 89 L 04/15/23 20:03 97 H 92 04/15/23 20:02 97 H 96 04/15/23 20:00 16 04/15/23 20:00 16 04/15/23 19:59 90 131/86 04/15/23 19:57 91 04/15/23 19:57 108 H 04/15/23 19:57 95 H 92 04/15/23 19:52 93 H 97 04/15/23 19:51 95 H 93 04/15/23 19:47 99 H 97 04/15/23 19:46 90 04/15/23 19:46 95 H 04/15/23 19:46 92 H 139/89 04/15/23 19:42 94 H 97 04/15/23 19:41 94 H 87 L 04/15/23 19:37 97 H 96 04/15/23 19:34 92 H 92 04/15/23 19:32 100 H 97 04/15/23 19:30 18 04/15/23 19:30 18 04/15/23 19:29 101 H 93 04/15/23 19:27 103 H 96 04/15/23 19:22 121 H 97 04/15/23 19:17 103 H 78 L 04/15/23 19:15 36.6 C 90 18 87 L 04/15/23 19:14 85 143/75 H 04/15/23 19:12 91 H 99 04/15/23 19:07 94 H 99 04/15/23 19:02 94 H 100 04/15/23 18:59 96 H 141/71 H 04/15/23 18:57 91 H 98 04/15/23 18:54 84 87 L 04/15/23 18:52 89 99 04/15/23 18:49 97 H 92 04/15/23 18:47 93 H 100 04/15/23 18:43 95 H 91 04/15/23 18:42 86 100 04/15/23 18:37 100 04/15/23 18:37 102 H 04/15/23 18:37 89 84 L 04/15/23 18:32 88 100 04/15/23 18:31 91 04/15/23 18:31 86 04/15/23 18:31 87 136/82 04/15/23 18:27 84 100 04/15/23 18:25 105 H 93 04/15/23 18:22 86 100 04/15/23 18:17 74 100 04/15/23 18:15 76 123/64 04/15/23 18:12 84 100 04/15/23 18:09 18 04/15/23 18:09 36.5 C 18 04/15/23 18:07 79 100 04/15/23 18:02 76 100 04/15/23 17:59 78 136/77 04/15/23 17:57 77 100 04/15/23 17:52 73 98 04/15/23 17:47 76 100 04/15/23 17:44 73 134/79 04/15/23 17:42 88 99 04/15/23 17:37 74 96 04/15/23 17:32 82 98 04/15/23 17:29 80 135/85 04/15/23 17:27 70 100 04/15/23 17:25 77 93 04/15/23 17:22 76 100 04/15/23 17:17 73 100 04/15/23 17:15 74 135/71 04/15/23 17:12 74 100 04/15/23 17:07 75 100 04/15/23 17:02 76 100 04/15/23 16:59 80 127/74 04/15/23 16:57 78 100 04/15/23 16:52 71 99 04/15/23 16:47 36.9 C 72 16 99 04/15/23 16:44 77 138/80 04/15/23 16:42 77 98 04/15/23 16:37 99 04/15/23 16:37 84 04/15/23 16:37 80 90 04/15/23 16:32 69 98 04/15/23 16:29 67 128/73 04/15/23 16:27 71 98 04/15/23 16:22 69 98 04/15/23 16:21 78 94 04/15/23 16:17 73 100 04/15/23 16:14 75 136/73 04/15/23 16:12 66 100 04/15/23 16:08 71 93 04/15/23 16:07 74 96 04/15/23 16:05 18 04/15/23 16:05 36.5 C 18 04/15/23 16:02 73 100 04/15/23 16:00 69 129/73 04/15/23 15:57 71 100 04/15/23 15:52 66 100 04/15/23 15:47 71 97 04/15/23 15:45 69 127/63 04/15/23 15:42 73 100 04/15/23 15:37 71 100 04/15/23 15:32 74 99 04/15/23 15:29 64 127/68 04/15/23 15:27 72 99 04/15/23 15:22 72 100 04/15/23 15:21 74 94 04/15/23 15:17 68 100 04/15/23 15:14 64 120/73 04/15/23 15:12 71 100 04/15/23 15:07 65 100 04/15/23 15:02 100 04/15/23 15:02 66 04/15/23 15:02 82 92 04/15/23 14:59 68 133/74 04/15/23 14:57 70 98 04/15/23 14:52 70 97 04/15/23 14:47 70 100 04/15/23 14:44 66 130/73 04/15/23 14:42 68 97 04/15/23 14:37 69 99 04/15/23 14:32 68 99 04/15/23 14:30 16 04/15/23 14:30 36.5 C 16 04/15/23 14:29 69 129/80 04/15/23 14:27 65 97 04/15/23 14:22 69 97 04/15/23 14:17 68 99 04/15/23 14:15 67 128/69 04/15/23 14:12 68 100 04/15/23 14:07 68 100 04/15/23 14:02 80 98 04/15/23 13:59 88 125/62 04/15/23 13:57 79 100 04/15/23 13:52 81 98 04/15/23 13:47 83 100 04/15/23 13:45 73 116/60 04/15/23 13:42 74 99 04/15/23 13:37 76 99 04/15/23 13:32 76 98 04/15/23 13:29 77 111/61 04/15/23 13:27 75 100 04/15/23 13:22 82 98 04/15/23 13:17 80 98 04/15/23 13:14 80 116/63 04/15/23 13:12 77 95 04/15/23 13:10 16 04/15/23 13:10 36.6 C 16 04/15/23 13:07 82 99 04/15/23 13:03 81 94 04/15/23 13:02 80 97 04/15/23 12:59 81 116/65 04/15/23 12:57 80 98 04/15/23 12:52 87 97 04/15/23 12:47 86 96 04/15/23 12:45 94 H 131/67 04/15/23 12:42 88 98 04/15/23 12:37 84 98 04/15/23 12:36 82 93 04/15/23 12:32 89 100 04/15/23 12:29 84 131/76 04/15/23 12:27 80 98 04/15/23 12:24 82 134/67 04/15/23 12:22 83 100 04/15/23 12:18 80 134/69 04/15/23 12:17 81 100 04/15/23 12:15 75 126/92 04/15/23 12:12 70 98 04/15/23 12:07 167 H 97 04/15/23 11:21 74 96 04/15/23 11:18 70 94 04/15/23 11:16 63 97 04/15/23 11:15 18 04/15/23 11:15 36.6 C 18 04/15/23 11:12 72 94 04/15/23 11:11 66 95 04/15/23 11:06 69 93 04/15/23 11:05 70 93 04/15/23 11:01 70 93 04/15/23 10:58 72 94 04/15/23 10:56 75 94 04/15/23 10:51 74 91 04/15/23 10:49 73 92 04/15/23 10:46 69 91 04/15/23 10:43 74 93 04/15/23 10:41 71 98 04/15/23 10:37 73 94 04/15/23 10:36 78 96 04/15/23 10:20 20 04/15/23 10:20 36.7 C 20 04/15/23 10:18 81 117/72 04/15/23 08:05 18 04/15/23 08:05 36.7 C 18 04/15/23 06:59 36.7 C 72 16 127/71 04/15/23 02:00 18 04/15/23 02:00 36.8 C 18 04/15/23 01:59 73 122/78 Pain Intensity Bilateral Abdomen: Pain Intensity: 0 Transfer of Care Handoff Completed per policy Notes Mental Status: alert / awake / arousable and participated in evaluation Patient Amnestic to Procedure: Yes Nausea / Vomiting: adequately controlled Pain: adequately controlled Airway Patency, RR, SpO2: stable & adequate BP & HR: stable & adequate Hydration State: stable & adequate Anesthetic Complications: no major complications apparent and Pt Satisfied with anesthetic care
--- NOTE | 2023-04-16 01:31 | Operative Report ---
Post Operative Report Pre & Post Diagnosis Operation Date: 04/15/23 23:15 Pre-Op Diagnosis: failure to progress, arrest of descent, suspected macrosomia Post-Op Diagnosis: same as pre-op I identified the patient and participated in the time-out.: Yes Procedure Operation Date: 04/15/23 23:15 Actual Procedures p Section in LD for the of a viable male @0008(Bilateral) - Rodney Lang MD Surgeon Rodney Lang MD Phlebotomy Lab Assistant Dr. FRASER Estimated Blood Loss 500 Findings Consistent with Post-Op Diagnosis Specimens Placenta Drains Gibson catheter: 100 ml urine Anesthesia Type Labor Epidural Complications none Disposition Accompanied Patient To Recovery: Yes Indications 32 yo at 41 weeks, induction of labor for postdates since 04/14, arrest of descent in second stage of labor, suspected macrosomia Description of Procedure Patient was taken to operating room where a spinal anesthesia was given without difficulty. She was placed in dorsal supine position with a leftward tilt. Vaginal exam was done for Betadine and head pushed back into upper pelvis. She was prepared and draped in usual sterile fashion. A financial skin incision was made and carried through to the underlying layer of fascia with the Bovie. Fascia was incised in the midline and incision was extended laterally with the help of Montes De Oca scissors. Then the upper aspect of the fascial incision was grasped with 2 Martinez clamps elevated the underlying rectus muscles were dissected off sharply with Montes De Oca scissors. Same thing was done on the lower incision. Then the muscles were in the midline, peritoneum was identified grasped with 2 pickups and entered sharply with Metzenbaum scissors. Peritoneal incision was extended superior and inferiorly with good visualization of the bladder. The bladder blade was inserted. Vesicouterine peritoneum was identified, grasped with pickups and entered sharply with Metzenbaum scissors, bladder flap was created digitally and bladder blade was reinserted. Uterus was incised in transverse fashion, incision was extended laterally with bandage scissors, membranes were ruptured and clear fluid was obtained. Baby's left shoulder and arm was at the site of incision. Those were pushed back into uterus. Head was low in pelvis in direct occiput posterior position. Head was grasped and brought up to the incision and delivered without difficulty. Then the left arm on shoulder followed by right side and trunk were delivered. Mouth and nose were suctioned, baby was dried on the field, he was vigorously crying and moving. The cord was clamped x2 and cut and then the was handed off to the pediatric team. Then the placenta was delivered manually as intact and complete. Uterus was externalized and cleared of all clots and debris's. Uterine incision was repaired with 0 Vicryl in a running locked fashion, second umbricating layer was placed with the same suture in running locked fashion. Excellent hemostasis achieved. Cul-de-sac and the pelvis was irrigated with warm normal saline and suctioned. Incision was checked to be hemostatic again. Uterus was returned to the abdomen, parietal peritoneum was reapproximated with 3-0 Vicryl in a running fashion and the muscles were reapproximated in the same suture in a running fashion. All of the fascia and rectus muscles were hemostatic. Rectus fascia was reapproximated with #1 Vicryl starting from both corners meeting in the midline. Subcuticular fat tissue was brought together with 2-0 Vicryl in a running fashion, skin was closed with 4-0 Monocryl in a subcuticular cuticular fashion. The mom and baby tolerated procedure well. Sponge needle instrument count was correct x3. No complications happened, I was present during whole procedure with Dr Fraser. My assistant pressman was needed for retraction, hemostasis and aid during delivery of infant I attest to the content of the Intraoperative Record and any orders documented therein. Any exceptions are noted below.
[2023-04-16] MEDS ORDERED: OXYTOCIN 30 UNITS in D5W AND LACTATED RINGERS 1,000 ML IV SCH (01:45)
[2023-04-16] MEDS ORDERED: OXYTOCIN 10 UNITS/ML VIAL IM ONE (01:45)
[2023-04-16] MEDS: METHYLERGONOVINE MALEATE 0.2 MG TAB PO SCH ×5 (03:25→20:19)
[2023-04-16] MEDS ORDERED: KETOROLAC 30 MG/ML VIAL ONE (04:27)
[2023-04-16] MEDS: ceFAZolin 2000MG 2,000 MG/15 ML SYR IV SCH ×2 (07:59→16:29)
[2023-04-16] MEDS: SIMETHICONE 80 MG CHEW PO SCH ×4 (09:24→20:19)
[2023-04-16] MEDS: FERROUS SULFATE 325 MG TAB PO SCH (09:25)
[2023-04-16] MEDS: DOCUSATE SODIUM 100 MG CAP PO SCH ×2 (09:25→20:18)
[2023-04-16] MEDS: PRENATAL VITAMIN 1 TAB PO SCH (09:25)
[2023-04-16] MEDS ORDERED: OXYTOCIN 20 UNITS/LR 1,002 ML IV SCH (09:45)
--- NOTE | 2023-04-16 11:00 | Obstetrical Progress Note ---
Date of Service April 16, 2023 Assessment & Plan Admission and Anticipated Discharge Date Admission Date: April 14, 2023 Subjective Postop check Patient is seen and examined Feels well, no complaints Pain is under control with meds No CP/ SOB/ Dizziness/ N&V/ VB/ Leg pain Not OOB yet Tolerating clears Breast feeding Vital Signs Temp Pulse Pulse Pulse Resp BP BP 04/16/23 10:38 18 04/16/23 09:40 18 04/16/23 08:37 18 04/16/23 07:40 18 04/16/23 07:35 36.5 C 89 18 120/78 04/16/23 06:40 16 04/16/23 04:35 04/16/23 04:34 04/16/23 04:05 18 04/16/23 04:05 04/16/23 03:22 36.7 C 84 20 129/82 04/16/23 03:04 85 125/63 04/16/23 03:03 36.6 C 16 04/16/23 03:02 88 04/16/23 02:57 88 04/16/23 02:54 88 130/70 04/16/23 02:52 86 04/16/23 02:47 88 04/16/23 02:44 88 134/75 04/16/23 02:42 86 04/16/23 02:37 89 04/16/23 02:34 87 136/79 04/16/23 02:33 18 04/16/23 02:32 88 04/16/23 02:27 85 04/16/23 02:24 86 136/81 04/16/23 02:23 36.5 C 04/16/23 02:22 84 04/16/23 02:17 89 04/16/23 02:14 82 127/77 04/16/23 02:12 88 04/16/23 02:11 85 04/16/23 02:07 83 04/16/23 02:06 81 04/16/23 02:04 79 135/83 04/16/23 02:03 38.0 C H 16 04/16/23 02:03 38.0 C H 16 04/16/23 02:02 81 04/16/23 01:57 91 H 04/16/23 01:54 88 132/81 04/16/23 01:53 18 04/16/23 01:52 87 04/16/23 01:47 93 H 04/16/23 01:44 83 129/83 04/16/23 01:43 16 04/16/23 01:42 84 04/16/23 01:38 82 04/16/23 01:37 82 04/16/23 01:34 80 127/76 04/16/23 01:33 18 04/16/23 01:33 86 04/16/23 01:32 86 04/16/23 01:27 84 04/16/23 01:24 81 127/65 04/16/23 01:23 16 04/16/23 01:22 84 04/16/23 01:17 89 04/16/23 01:14 86 119/62 04/16/23 01:13 16 04/16/23 01:12 87 04/16/23 01:09 88 04/16/23 01:07 85 04/16/23 01:04 86 125/63 04/16/23 01:03 36.4 C L 18 04/16/23 01:02 90 04/15/23 23:39 18 04/15/23 23:39 18 04/15/23 23:38 90 04/15/23 23:33 95 H 04/15/23 23:30 95 H 18 04/15/23 23:29 83 110/68 04/15/23 23:28 85 04/15/23 23:23 81 04/15/23 23:19 84 04/15/23 23:18 82 04/15/23 23:14 83 131/72 04/15/23 23:13 85 04/15/23 23:08 82 04/15/23 23:03 90 04/15/23 23:00 18 04/15/23 23:00 18 Pulse Ox O2 Del Method O2 Flow Rate 04/16/23 10:38 94 04/16/23 09:40 99 04/16/23 08:37 97 04/16/23 07:40 95 04/16/23 07:35 95 Room Air 04/16/23 06:40 96 04/16/23 04:35 96 Nasal Cannula 2 04/16/23 04:34 88 L Room Air 04/16/23 04:05 96 04/16/23 04:05 Room Air 04/16/23 03:22 95 Room Air 04/16/23 03:04 04/16/23 03:03 04/16/23 03:02 96 04/16/23 02:57 96 04/16/23 02:54 04/16/23 02:52 93 04/16/23 02:47 95 04/16/23 02:44 04/16/23 02:42 96 04/16/23 02:37 97 04/16/23 02:34 04/16/23 02:33 04/16/23 02:32 98 04/16/23 02:27 95 04/16/23 02:24 04/16/23 02:23 04/16/23 02:22 95 04/16/23 02:17 93 04/16/23 02:14 04/16/23 02:12 90 04/16/23 02:11 91 04/16/23 02:07 90 04/16/23 02:06 91 04/16/23 02:04 04/16/23 02:03 04/16/23 02:03 04/16/23 02:02 94 04/16/23 01:57 92 04/16/23 01:54 04/16/23 01:53 04/16/23 01:52 94 04/16/23 01:47 94 04/16/23 01:44 04/16/23 01:43 04/16/23 01:42 95 04/16/23 01:38 91 04/16/23 01:37 92 04/16/23 01:34 04/16/23 01:33 04/16/23 01:33 91 04/16/23 01:32 91 04/16/23 01:27 95 04/16/23 01:24 93 04/16/23 01:23 04/16/23 01:22 98 04/16/23 01:17 98 04/16/23 01:14 04/16/23 01:13 04/16/23 01:12 98 04/16/23 01:09 93 04/16/23 01:07 97 04/16/23 01:04 04/16/23 01:03 04/16/23 01:02 97 04/15/23 23:39 04/15/23 23:39 04/15/23 23:38 96 04/15/23 23:33 97 04/15/23 23:30 90 04/15/23 23:29 04/15/23 23:28 96 04/15/23 23:23 97 04/15/23 23:19 90 04/15/23 23:18 93 04/15/23 23:14 04/15/23 23:13 95 04/15/23 23:08 97 04/15/23 23:03 96 04/15/23 23:00 04/15/23 23:00 Lab Results 04/14/23 Range/Units 09:14 WBC 12.58 H (4.8-10.8) K/ul RBC 4.27 (4.20-5.40) M/uL Hgb 11.4 L (12.0-16.0) g/dl Hct 34.5 L (37.0-47.0) % MCV 80.8 (80.0-100.0) fL MCH 26.7 (25.0-34.0) pg MCHC 33.0 (32.0-36.0) g/dL RDW Std Deviation 46.5 H (36.4-46.3) fL RDW Coeff of Marii 15.9 H (11.5-14.5) % Plt Count 199 (130-400) K/uL MPV 10.3 (9.4-12.4) fL Blood Type A Positive Antibody Screen NEGATIVE PE: General: Alert, orientedx3, NAD CVS: S1S2 RRR Lungs: CTAB Abd: soft, NT, ND, BS+, Incisions C/D/I No VB Ext: NT, no edema, SCD's on AP: 32 yo female s/p PLYCS , pod#0 VSS Afebrile doing well Continue to routine postop care Encourage PO intake and ambulate Results & Data Vital Signs (Past 12 Hours) Vital Signs Temp Pulse Pulse Pulse Resp BP BP 04/16/23 10:38 18 04/16/23 09:40 18 04/16/23 08:37 18 04/16/23 07:40 18 04/16/23 07:35 36.5 C 89 18 120/78 04/16/23 06:40 16 04/16/23 04:35 04/16/23 04:34 04/16/23 04:05 18 04/16/23 04:05 04/16/23 03:22 36.7 C 84 20 129/82 04/16/23 03:04 85 125/63 04/16/23 03:03 36.6 C 16 04/16/23 03:02 88 04/16/23 02:57 88 04/16/23 02:54 88 130/70 04/16/23 02:52 86 04/16/23 02:47 88 04/16/23 02:44 88 134/75 04/16/23 02:42 86 04/16/23 02:37 89 04/16/23 02:34 87 136/79 04/16/23 02:33 18 04/16/23 02:32 88 04/16/23 02:27 85 04/16/23 02:24 86 136/81 04/16/23 02:23 36.5 C 04/16/23 02:22 84 04/16/23 02:17 89 04/16/23 02:14 82 127/77 04/16/23 02:12 88 04/16/23 02:11 85 04/16/23 02:07 83 04/16/23 02:06 81 04/16/23 02:04 79 135/83 04/16/23 02:03 38.0 C H 16 04/16/23 02:03 38.0 C H 16 04/16/23 02:02 81 04/16/23 01:57 91 H 04/16/23 01:54 88 132/81 04/16/23 01:53 18 04/16/23 01:52 87 04/16/23 01:47 93 H 04/16/23 01:44 83 129/83 04/16/23 01:43 16 04/16/23 01:42 84 04/16/23 01:38 82 04/16/23 01:37 82 04/16/23 01:34 80 127/76 04/16/23 01:33 18 04/16/23 01:33 86 04/16/23 01:32 86 04/16/23 01:27 84 04/16/23 01:24 81 127/65 04/16/23 01:23 16 04/16/23 01:22 84 04/16/23 01:17 89 04/16/23 01:14 86 119/62 04/16/23 01:13 16 04/16/23 01:12 87 04/16/23 01:09 88 04/16/23 01:07 85 04/16/23 01:04 86 125/63 04/16/23 01:03 36.4 C L 18 04/16/23 01:02 90 04/15/23 23:39 18 04/15/23 23:39 18 04/15/23 23:38 90 04/15/23 23:33 95 H 04/15/23 23:30 95 H 18 04/15/23 23:29 83 110/68 04/15/23 23:28 85 04/15/23 23:23 81 04/15/23 23:19 84 04/15/23 23:18 82 04/15/23 23:14 83 131/72 04/15/23 23:13 85 04/15/23 23:08 82 04/15/23 23:03 90 04/15/23 23:00 18 04/15/23 23:00 18 Pulse Ox O2 Del Method O2 Flow Rate 04/16/23 10:38 94 04/16/23 09:40 99 04/16/23 08:37 97 04/16/23 07:40 95 04/16/23 07:35 95 Room Air 04/16/23 06:40 96 04/16/23 04:35 96 Nasal Cannula 2 04/16/23 04:34 88 L Room Air 04/16/23 04:05 96 04/16/23 04:05 Room Air 04/16/23 03:22 95 Room Air 04/16/23 03:04 04/16/23 03:03 04/16/23 03:02 96 04/16/23 02:57 96 04/16/23 02:54 04/16/23 02:52 93 04/16/23 02:47 95 04/16/23 02:44 04/16/23 02:42 96 04/16/23 02:37 97 04/16/23 02:34 04/16/23 02:33 04/16/23 02:32 98 04/16/23 02:27 95 04/16/23 02:24 04/16/23 02:23 04/16/23 02:22 95 04/16/23 02:17 93 04/16/23 02:14 04/16/23 02:12 90 04/16/23 02:11 91 04/16/23 02:07 90 04/16/23 02:06 91 04/16/23 02:04 04/16/23 02:03 04/16/23 02:03 04/16/23 02:02 94 04/16/23 01:57 92 04/16/23 01:54 04/16/23 01:53 04/16/23 01:52 94 04/16/23 01:47 94 04/16/23 01:44 04/16/23 01:43 04/16/23 01:42 95 04/16/23 01:38 91 04/16/23 01:37 92 04/16/23 01:34 04/16/23 01:33 04/16/23 01:33 91 04/16/23 01:32 91 04/16/23 01:27 95 04/16/23 01:24 93 04/16/23 01:23 04/16/23 01:22 98 04/16/23 01:17 98 04/16/23 01:14 04/16/23 01:13 04/16/23 01:12 98 04/16/23 01:09 93 04/16/23 01:07 97 04/16/23 01:04 04/16/23 01:03 04/16/23 01:02 97 04/15/23 23:39 04/15/23 23:39 04/15/23 23:38 96 04/15/23 23:33 97 04/15/23 23:30 90 04/15/23 23:29 04/15/23 23:28 96 04/15/23 23:23 97 04/15/23 23:19 90 04/15/23 23:18 93 04/15/23 23:14 04/15/23 23:13 95 04/15/23 23:08 97 04/15/23 23:03 96 04/15/23 23:00 04/15/23 23:00
[2023-04-16] MEDS ORDERED: MEPERIDINE HCL 50 MG/ML CARP IV PRN (17:39)
[2023-04-16] MEDS ORDERED: diphenhydrAMINE 50 MG/ML VIAL IV PRN (17:39)
[2023-04-16] MEDS ORDERED: PROMETHAZINE HCL 25 MG in SODIUM CHLORIDE 0.9% 50 ML IV PRN (17:39)
[2023-04-16] MEDS ORDERED: KETOROLAC 30 MG/ML VIAL IV PRN (17:39)
[2023-04-16] MEDS ORDERED: diphenhydrAMINE Capsule 25 MG CAP PO PRN (17:39)
[2023-04-17] MEDS: ceFAZolin 2000MG 2,000 MG/15 ML SYR IV SCH (00:16)
[2023-04-17] MEDS: ONDANSETRON INJ 2 MG/ML 2 ML VIAL IV PRN ×2 (00:49→08:26)
[2023-04-17] MEDS: IBUPROFEN 600 MG TAB PO PRN ×4 (00:49→22:21)
[2023-04-17] MEDS: oxyCODONE/ACETAMINOPHEN 5mg/325mg TAB PO PRN ×4 (00:49→22:21)
[2023-04-17 06:33] LABS: Basophils # (auto) 0.03 K/uL (0.00-0.20); Basophils % (auto) 0.2 %; Eosinophils # (auto) 0.14 K/uL (0.00-0.50); Eosinophils % (auto) 0.8 %; Hematocrit (blood only) 35.2 % (37.0-47.0); Immature Granulocytes # (auto) 0.13 K/uL (0.01-0.20); Immature Granulocytes % (auto) 0.7 %; Lymphocytes # (auto) 0.96 K/uL (1.20-3.40); Lymphocytes % (auto) 5.4 %; Mean Corpuscular Hemoglobin 26.3 pg (25.0-34.0); Mean Corpuscular Hgb Conc 31.3 g/dL (32.0-36.0); Mean Platelet Volume 10.4 fL (9.4-12.4); Monocytes # (auto) 1.33 K/uL (0.11-0.59); Monocytes % (auto) 7.5 %; Neutrophils # (auto) 15.23 K/uL (1.40-6.50); Neutrophils % (auto) 85.4 %; Platelet Count 194 K/uL (130-400); RDW Coefficient of Variation 16.4 % (11.5-14.5); RDW Standard Deviation 49.9 fL (36.4-46.3); Red Blood Count 4.19 M/uL (4.20-5.40); White Blood Count 17.82 K/ul (4.8-10.8)
--- NOTE | 2023-04-17 09:47 | Obstetrical Progress Note ---
Date of Service April 17, 2023 Subjective Ambulation: ambulating normally Voiding: no voiding problems Passing Gas:: Yes Diet Tolerance:: regular diet Lochia:: Small Feeding Type:: breast feeding Current Pain Level(1-10): 0 doing better today Physical Exam Constitutional WD/WN, vitals as above Gastrointestinal (Abdomen) Inspection/Auscultation: abdomen normal to inspection abdomen soft and non-tender. some gas distention noted. She is passing gas incision c/d/i Musculoskeletal Extremities: extremities normal to inspection Skin no rashes, warm and dry Neurologic patellar DTR's 2+ bilat, sensation intact Psychiatric A+Ox3, euthymic affect Results & Data Vital Signs (Past 12 Hours) Vital Signs Temp Pulse Resp BP Pulse Ox O2 Del Method 04/17/23 08:31 36.7 C 90 18 129/84 04/17/23 00:30 36.7 C 84 20 108/74 98 Room Air Laboratory Results 04/14/23 04/17/23 09:14 06:03 WBC 12.58 H 17.82 H RBC 4.27 4.19 L Hgb 11.4 L 11.0 L Hct 34.5 L 35.2 L MCV 80.8 84.0 MCH 26.7 26.3 MCHC 33.0 31.3 L RDW Std Deviation 46.5 H 49.9 H RDW Coeff of Marii 15.9 H 16.4 H Plt Count 199 194 MPV 10.3 10.4 Immature Gran % (Auto) 0.7 Neut % (Auto) 85.4 Lymph % (Auto) 5.4 [place] % (Auto) 7.5 Eos % (Auto) 0.8 Baso % (Auto) 0.2 Neut # (Auto) 15.23 H Lymph # (Auto) 0.96 L [place] # (Auto) 1.33 H Eos # (Auto) 0.14 Baso # (Auto) 0.03 Immature Gran # (Auto) 0.13 Blood Type A Positive Antibody Screen NEGATIVE
[2023-04-17] MEDS: PRENATAL VITAMIN 1 TAB PO SCH (10:03)
[2023-04-17] MEDS: DOCUSATE SODIUM 100 MG CAP PO SCH ×2 (10:03→21:03)
[2023-04-17] MEDS: SIMETHICONE 80 MG CHEW PO SCH ×4 (10:03→21:03)
[2023-04-17] MEDS: FERROUS SULFATE 325 MG TAB PO SCH (10:03)
[2023-04-17] MEDS ORDERED: bisacodyL 5 MG TABEC PO SCH (20:00)
[2023-04-18] MEDS ORDERED: bisacodyL 10 MG SUPP PR PRN
[2023-04-18 06:05] LABS: Hematocrit (blood only) 31.7 % (37.0-47.0); Hemoglobin 9.8 g/dl (12.0-16.0)
[2023-04-18] MEDS: FERROUS SULFATE 325 MG TAB PO SCH (07:38)
[2023-04-18] MEDS: DOCUSATE SODIUM 100 MG CAP PO SCH ×2 (07:38→19:52)
[2023-04-18] MEDS: oxyCODONE/ACETAMINOPHEN 5mg/325mg TAB PO PRN ×4 (07:38→23:57)
[2023-04-18] MEDS: IBUPROFEN 600 MG TAB PO PRN ×3 (07:38→23:57)
[2023-04-18] MEDS: PRENATAL VITAMIN 1 TAB PO SCH (07:38)
[2023-04-18 08:45] LABS: Basophils # (auto) 0.04 K/uL (0.00-0.20); Basophils % (auto) 0.3 %; Eosinophils % (auto) 1.7 %; Immature Granulocytes # (auto) 0.09 K/uL (0.01-0.20); Immature Granulocytes % (auto) 0.7 %; Lymphocytes # (auto) 1.43 K/uL (1.20-3.40); Lymphocytes % (auto) 11.8 %; Mean Corpuscular Hemoglobin 26.1 pg (25.0-34.0); Mean Platelet Volume 10.2 fL (9.4-12.4); Monocytes # (auto) 0.98 K/uL (0.11-0.59); Monocytes % (auto) 8.1 %; Neutrophils # (auto) 9.34 K/uL (1.40-6.50); Neutrophils % (auto) 77.4 %; Platelet Count 179 K/uL (130-400); RDW Coefficient of Variation 16.4 % (11.5-14.5); Red Blood Count 3.71 M/uL (4.20-5.40); White Blood Count 12.08 K/ul (4.8-10.8)
[2023-04-18 08:52] LABS: Mean Corpuscular Hgb Conc 30.9 g/dL (32.0-36.0); Mean Corpuscular Volume 84.5 fL (80.0-100.0)
--- NOTE | 2023-04-18 08:59 | Obstetrical Progress Note ---
Date of Service April 18, 2023 Assessment & Plan Admission and Anticipated Discharge Date Admission Date: April 14, 2023 Subjective Patient is seen and examined. She feels well, no complaints. Pain is under control with oral meds. Ambulating without dizziness Voiding without difficulty Tolerating regular diet with out N&V Flatus + BM + small Bleeding is minimal No fever/ chills/ CP/ SOB/ N&V/ Leg pain Working on breast feeding without problems Vital Signs Temp Pulse Resp BP Pulse Ox O2 Del Method 04/17/23 22:14 36.6 C 73 18 114/77 99 Room Air 04/17/23 21:00 36.3 C L 73 17 127/85 100 Room Air Vital Signs Temp Pulse Resp BP Pulse Ox O2 Del Method 04/17/23 22:14 36.6 C 73 18 114/77 99 Room Air 04/17/23 21:00 36.3 C L 73 17 127/85 100 Room Air 04/17/23 18:59 36.7 C 96 H 20 135/76 98 Room Air Hb 9.8 WBCC coming down PE: General: Alert, orientedx3, NAD CVS: S1S2 RRR Lungs; CTAB Abd: soft, NT, ND, BS+, fundus firm, below Umbilicus Incision/ LAQUITA dressing: Clean, dry, intact Perineum intact, Lochia rubra minimal Ext; NT, no edema, Homans sign neg/ neg AP: 32 yo s/p C Section, pod# 2 VSS Afebrile doing well Continue routine postop care Encourage ambulation, PO intake All questions were answered Possible D/C home this afternoon depending on breast feeding Discussed when to call Results & Data Vital Signs (Past 12 Hours) Vital Signs Temp Pulse Resp BP Pulse Ox O2 Del Method 04/17/23 22:14 36.6 C 73 18 114/77 99 Room Air 04/17/23 21:00 36.3 C L 73 17 127/85 100 Room Air
[2023-04-18] MEDS: SIMETHICONE 80 MG CHEW PO SCH ×4 (09:04→19:52)
[2023-04-18] MEDS ORDERED: MAGNESIUM HYDROXIDE SUSP 30 ML UDC PO STA (09:22)
[2023-04-18] MEDS: LACTATED RINGER'S 1,000 ML IV SCH ×4 (19:24→19:29)
[2023-04-18] MEDS: METHYLERGONOVINE MALEATE 0.2 MG TAB PO SCH (19:30)
--- NOTE | 2023-04-19 07:45 | Obstetrical Progress Note ---
Date of Service April 19, 2023 Assessment & Plan (1) Normal course: Continue routine care Patient already has meds that were sent to the pharmacy by Dr Chester (Percocet was sent through [facility] system and not [facility]) (2) Delivery by section: Subjective Ambulation: ambulating normally Voiding: no voiding problems Passing Gas:: Yes Diet Tolerance:: regular diet Lochia:: Small Feeding Type:: breast feeding Current Pain Level(1-10): 4 Patient doing well, combination feeding with no issues. Would like pain medication this morning, would like to go home today Physical Exam Constitutional WD/WN, vitals as above Respiratory normal respiratory effort, lungs clear to auscultation Cardiovascular RRR, no murmur, no edema Gastrointestinal (Abdomen) normal bowel sounds, soft, nontender, no hepatosplenomegaly fundus below U Results & Data Vital Signs (Past 12 Hours) Vital Signs Temp Pulse Resp BP Pulse Ox O2 Del Method 04/18/23 23:55 36.5 C 89 18 123/76 98 Room Air 04/18/23 19:45 36.7 C 89 18 131/79 98 Room Air Laboratory Results Laboratory Results WBC 12.08 K/ul (4.8-10.8) H 04/18/23 05:49 WBC Cancelled 04/18/23 05:49 RBC 3.71 M/uL (4.20-5.40) L 04/18/23 05:49 RBC Cancelled 04/18/23 05:49 Hgb 9.8 g/dl (12.0-16.0) L 04/18/23 05:49 Hgb Cancelled 04/18/23 05:49 Hct 31.7 % (37.0-47.0) L 04/18/23 05:49 Hct Cancelled 04/18/23 05:49 MCV 84.5 fL (80.0-100.0) 04/18/23 05:49 MCV Cancelled 04/18/23 05:49 MCH 26.1 pg (25.0-34.0) 04/18/23 05:49 MCH Cancelled 04/18/23 05:49 MCHC 30.9 g/dL (32.0-36.0) L 04/18/23 05:49 MCHC Cancelled 04/18/23 05:49 RDW Std Deviation 51.0 fL (36.4-46.3) H 04/18/23 05:49 RDW Std Deviation Cancelled 04/18/23 05:49 RDW Coeff of Marii 16.4 % (11.5-14.5) H 04/18/23 05:49 RDW Coeff of Marii Cancelled 04/18/23 05:49 Plt Count 179 K/uL (130-400) 04/18/23 05:49 Plt Count Cancelled 04/18/23 05:49 MPV 10.2 fL (9.4-12.4) 04/18/23 05:49 MPV Cancelled 04/18/23 05:49 Immature Gran % (Auto) 0.7 % 04/18/23 05:49 Immature Gran % (Auto) Cancelled 04/18/23 05:49 Neut % (Auto) 77.4 % 04/18/23 05:49 Neut % (Auto) Cancelled 04/18/23 05:49 Lymph % (Auto) 11.8 % 04/18/23 05:49 Lymph % (Auto) Cancelled 04/18/23 05:49 [place] % (Auto) 8.1 % 04/18/23 05:49 [place] % (Auto) Cancelled 04/18/23 05:49 Eos % (Auto) 1.7 % 04/18/23 05:49 Eos % (Auto) Cancelled 04/18/23 05:49 Baso % (Auto) 0.3 % 04/18/23 05:49 Baso % (Auto) Cancelled 04/18/23 05:49 Neut # (Auto) 9.34 K/uL (1.40-6.50) H 04/18/23 05:49 Neut # (Auto) Cancelled 04/18/23 05:49 Lymph # (Auto) 1.43 K/uL (1.20-3.40) 04/18/23 05:49 Lymph # (Auto) Cancelled 04/18/23 05:49 [place] # (Auto) 0.98 K/uL (0.11-0.59) H 04/18/23 05:49 [place] # (Auto) Cancelled 04/18/23 05:49 Eos # (Auto) 0.20 K/uL (0.00-0.50) 04/18/23 05:49 Eos # (Auto) Cancelled 04/18/23 05:49 Baso # (Auto) 0.04 K/uL (0.00-0.20) 04/18/23 05:49 Baso # (Auto) Cancelled 04/18/23 05:49 Immature Gran # (Auto) 0.09 K/uL (0.01-0.20) 04/18/23 05:49 Immature Gran # (Auto) Cancelled 04/18/23 05:49 Absolute Nucleated RBC Cancelled 04/18/23 05:49 Nucleated RBC % (auto) Cancelled 04/18/23 05:49 Neutrophils % (Manual) Cancelled 04/18/23 05:49 Band Neutrophils % Cancelled 04/18/23 05:49 Lymphocytes % (Manual) Cancelled 04/18/23 05:49 Prolymphocyte % Cancelled 04/18/23 05:49 Reactive Lymphs % (Man) Cancelled 04/18/23 05:49 Monocytes % (Manual) Cancelled 04/18/23 05:49 Eosinophils % (Manual) Cancelled 04/18/23 05:49 Basophils % (Manual) Cancelled 04/18/23 05:49 Metamyelocytes % (Man) Cancelled 04/18/23 05:49 Myelocytes % (Man) Cancelled 04/18/23 05:49 Promyelocytes % (Man) Cancelled 04/18/23 05:49 Blast Cells % (Manual) Cancelled 04/18/23 05:49 Plasma Cell % (Manual) Cancelled 04/18/23 05:49 Other Cells % Cancelled 04/18/23 05:49 Nucleated RBC % Cancelled 04/18/23 05:49 Neutrophils # (Manual) Cancelled 04/18/23 05:49 Band Neutrophils # Cancelled 04/18/23 05:49 Total Absolute Neuts Cancelled 04/18/23 05:49 Lymphocytes # (Manual) Cancelled 04/18/23 05:49 Prolymphocyte # Cancelled 04/18/23 05:49 Reactive Lymphs # Cancelled 04/18/23 05:49 Total Abs Lymphocytes Cancelled 04/18/23 05:49 Monocytes # (Manual) Cancelled 04/18/23 05:49 Eosinophils # (Manual) Cancelled 04/18/23 05:49 Basophils # (Manual) Cancelled 04/18/23 05:49 Metamyelocytes # (Man) Cancelled 04/18/23 05:49 Myelocytes # (Manual) Cancelled 04/18/23 05:49 Promyelocytes # (Man) Cancelled 04/18/23 05:49 Blast Cells # (Man) Cancelled 04/18/23 05:49 Plasma Cell # (Manual) Cancelled 04/18/23 05:49 Other Cells # Cancelled 04/18/23 05:49 Nucleated RBCs # (Man) Cancelled 04/18/23 05:49 Hypersegmented Neuts Cancelled 04/18/23 05:49 Hyposegmented Neuts Cancelled 04/18/23 05:49 Hypogranular Neuts Cancelled 04/18/23 05:49 Large Granular Lymphs Cancelled 04/18/23 05:49 # Lrg Granular Lymphs Cancelled 04/18/23 05:49 Hairy Cells Cancelled 04/18/23 05:49 Smudge Cells Cancelled 04/18/23 05:49 Toxic Granulation Cancelled 04/18/23 05:49 Toxic Vacuolation Cancelled 04/18/23 05:49 Dohle Bodies Cancelled 04/18/23 05:49 Chrissie Rods Cancelled 04/18/23 05:49 Platelet Estimate Cancelled 04/18/23 05:49 Hypogranular Platelets Cancelled 04/18/23 05:49 Giant Platelets Cancelled 04/18/23 05:49 Platelet Satelliting Cancelled 04/18/23 05:49 RBC Morphology Cancelled 04/18/23 05:49 Polychromasia Cancelled 04/18/23 05:49 Hypochromasia Cancelled 04/18/23 05:49 Poikilocytosis Cancelled 04/18/23 05:49 Basophilic Stippling Cancelled 04/18/23 05:49 Anisocytosis Cancelled 04/18/23 05:49 Microcytosis Cancelled 04/18/23 05:49 Macrocytosis Cancelled 04/18/23 05:49 Spherocytes Cancelled 04/18/23 05:49 Pappenheimer Bodies Cancelled 04/18/23 05:49 Sickle Cells Cancelled 04/18/23 05:49 Target Cells Cancelled 04/18/23 05:49 Tear Drop Cells Cancelled 04/18/23 05:49 Ovalocytes Cancelled 04/18/23 05:49 Stomatocytes Cancelled 04/18/23 05:49 [place]-Jasper Bodies Cancelled 04/18/23 05:49 Echinocytes Cancelled 04/18/23 05:49 Acanthocytes (Spur) Cancelled 04/18/23 05:49 Rouleaux Cancelled 04/18/23 05:49 RBC Agglutinates Cancelled 04/18/23 05:49 Schistocytes Cancelled 04/18/23 05:49 Sezary Cell Cancelled 04/18/23 05:49 Blood Parasites ID Cancelled 04/18/23 05:49 Blood Type A Positive 04/14/23 09:14 Antibody Screen NEGATIVE 04/14/23 09:14
[2023-04-19] MEDS: FERROUS SULFATE 325 MG TAB PO SCH (07:57)
[2023-04-19] MEDS: SIMETHICONE 80 MG CHEW PO SCH ×2 (07:57→12:31)
[2023-04-19] MEDS: PRENATAL VITAMIN 1 TAB PO SCH (07:57)
[2023-04-19] MEDS: oxyCODONE/ACETAMINOPHEN 5mg/325mg TAB PO PRN (07:57)
[2023-04-19] MEDS: IBUPROFEN 600 MG TAB PO PRN ×2 (07:58→12:30)
[2023-04-19] MEDS: DOCUSATE SODIUM 100 MG CAP PO SCH (07:58)
== END 2023-04-19 14:05 | disposition home health service (06) | DRG 788 ==
LOC: 4S1 07:28 → 4E2 04-16 03:44
DX: Z3A.40 40 weeks gestation of pregnancy; Z37.0 Single live birth; O62.1 Secondary uterine inertia; O48.0 Post-term pregnancy; O76 Abnormality in fetal heart rate and rhythm complicating labor and delivery; Z88.8 Allergy status to other drugs, medicaments and biological substances